=== PATIENT | male | born 1990 | race Caucasian/White ===

== ENCOUNTER 2022-11-28 05:19 | Emergency (ER) | payer SELFPAY ==
[2022-11-28 05:22] VITALS: BP 164/99; PULSE 118; RESP 18; TEMP 37.6; O2SAT 97; BMI 39.7
--- NOTE | 2022-11-28 05:48 | ED_ITS ---
HPI - General Adult General Chief complaint: Fever Time Seen by Provider: 11/28/22 05:44 History of Present Illness HPI narrative: presents complaining of sore throat and fever that started yesterday. Past history of tonsillectomy. has a dry cough. Not short of breath. Does have nausea but no abdominal pain. currently using eye drops for pink eye right eye and states the eye is better Related Data Allergies Allergy/AdvReac Type Severity Reaction Status Date / Time Penicillins Allergy Unknown Verified 11/28/22 05:25 Review of Systems ROS Status of ROS 10 or more systems reviewed and unremarkable except as noted in history and below Exam Constitutional Vital Signs - 24 hr 11/28/22 05:22 Temperature 99.6 F Pulse Rate [Monitor] 118 H Respiratory Rate 18 Blood Pressure [Right Arm] 164/99 H Pulse Oximetry 97 Common normals: no apparent distress, oriented x3, alert and well nourished HENMT Common normals: normocephalic and head/scalp atraumatic Eye Common normals: EOMs intact bilaterally Other: right conjunctiva pink. no chemosis Neck & C-Spine Common normals: full ROM Other: tender submandibular nodes Chest Common normals: inspection of chest normal, palpation of chest normal and inspection of breasts normal Respiratory Common normals: normal respiratory effort, no use of accessory muscles and clear to auscultation bilaterally Cardio Common normals: regular rate, regular rhythm, S1 normal heart sound and S2 normal heart sound GI Common normals: Normal to inspection, nondistended, normoactive bowel sounds present Extremity Common normals: normal to inspection, full ROM and no joint enlargement Neuro Common normals: oriented x3, CN's II-XII intact bilaterally, moves all extremities and no focal motor deficits Psych Appearance: grossly normal Course Vital Signs Vital signs: Vital Signs Temperature 99.6 F 11/28/22 05:22 Pulse Rate 118 H 11/28/22 05:22 Respiratory Rate 18 11/28/22 05:22 Blood Pressure 164/99 H 11/28/22 05:22 Pulse Oximetry 97 11/28/22 05:22 Temperature 99.6 F 11/28/22 05:22 Pulse Rate 118 H 11/28/22 05:22 Respiratory Rate 18 11/28/22 05:22 Blood Pressure 164/99 H 11/28/22 05:22 Pulse Oximetry 97 11/28/22 05:22 Medical Decision Making MDM Narrative Medical decision making narrative: patient presents with sore throat and low grade fever. Has dry cough and is not short of breath. Exam with mild erythema of his pharynx and bilat tender ant. cervical nodes. diagnostic and lab studies pending. Care transferred to Dr Mcclain at change of shift Lab Data Labs: Lab Results 11/28/22 Range/Units 06:00 Streptococcus Screen Negative Discharge Plan Discharge Chief Complaint: Fever Clinical Impression: Pharyngitis Referrals: [facility] [Primary Care Provider] - 1 week
--- NOTE | 2022-11-28 05:54 | XR_ITS ---
The [address] [address] Patient Name: GABRIELA STERN MRN: [id number] date: 1990 Sex: M Assigned Patient Location: ER Current Patient Location: ED.MAIN Accession/Order Number: [id number] Exam Date: 11/28/2022 06:05 Report Date: 11/28/2022 06:54 At the request of: GARY DANG Procedure: XR chest 2V EXAM: XR chest 2V 11/28/2022 6:05 AM EDT OH001 CLINICAL STATEMENT: cough COMPARISON: No prior studies are available at the time of dictation. TECHNIQUE: PA and lateral radiograph of the chest are submitted. FINDINGS: There is no acute airspace disease. The cardiac silhouette is normal. The costophrenic recesses are sharp. No pneumothorax. The bony elements are unremarkable. IMPRESSION: No acute cardiopulmonary process. Electronically authenticated by: JOSÉ MIGUEL CARDONA Date: 11/28/2022 06:54
[2022-11-28 06:05] LABS: Bordetella parapertussis NOT DETECTED (NOT DETECTE); Coronavirus 229E NOT DETECTED (NOT DETECTE); Coronavirus HKU1 NOT DETECTED (NOT DETECTE); Coronavirus NL63 NOT DETECTED (NOT DETECTE); Coronavirus OC43 NOT DETECTED (NOT DETECTE); Human Metapneumovirus NOT DETECTED (NOT DETECTE); Human Rhinovirus/Enterovirus NOT DETECTED (NOT DETECTE); Influenza A NOT DETECTED (NOT DETECTE); Influenza B NOT DETECTED (NOT DETECTE); Mycoplasma pneumoniae NOT DETECTED (NOT DETECTE); Parainfluenza Virus 1 NOT DETECTED (NOT DETECTE); Parainfluenza Virus 2 NOT DETECTED (NOT DETECTE); Parainfluenza Virus 3 NOT DETECTED (NOT DETECTE); Parainfluenza Virus 4 NOT DETECTED (NOT DETECTE); Respiratory Syncytial Virus NOT DETECTED (NOT DETECTE); SARS-CoV-2 NOT DETECTED (NOT DETECTE)
[2022-11-28] MEDS: ONDANSETRON 4 MG RAPDIS TABLET SL (06:05)
[2022-11-28 06:23] LABS: Internal Control Within Normal Limits; Strep A Antigen Screen Negative
[2022-11-28 07:04] LABS: Adenovirus DETECTED (NOT DETECTE)
--- NOTE | 2022-11-28 07:14 | ED_ITS ---
HPI - General Adult General Chief complaint: Fever Time Seen by Provider: 11/28/22 05:44 Related Data Allergies Allergy/AdvReac Type Severity Reaction Status Date / Time Penicillins Allergy Unknown Verified 11/28/22 05:25 Exam Constitutional Vital Signs - 24 hr 11/28/22 05:22 Temperature 99.6 F Pulse Rate [Monitor] 118 H Respiratory Rate 18 Blood Pressure [Right Arm] 164/99 H Pulse Oximetry 97 Course Vital Signs Vital signs: Vital Signs Temperature 99.6 F 11/28/22 05:22 Pulse Rate 118 H 11/28/22 05:22 Respiratory Rate 18 11/28/22 05:22 Blood Pressure 164/99 H 11/28/22 05:22 Pulse Oximetry 97 11/28/22 05:22 Temperature 99.6 F 11/28/22 05:22 Pulse Rate 118 H 11/28/22 05:22 Respiratory Rate 18 11/28/22 05:22 Blood Pressure 164/99 H 11/28/22 05:22 Pulse Oximetry 97 11/28/22 05:22 Medical Decision Making [facility] Narrative Medical decision making narrative: this patient was previously seen by Dr. Austin with laboratory testing ordered Strep screen is negative, the clinical exam was benign. The chest x-ray is negative and the respiratory panel is pending. I do not believe he needs any antibiotic intervention. His diagnosis will be acute pharyngitis Lab Data Labs: Lab Results 11/28/22 Range/Units 06:00 Adenovirus (PCR) Detected A (NOT DETECTE) C. pneumoniae DNA (PCR) Not detected (NOT DETECTE) Coronavirus Type OC43 Not detected (NOT DETECTE) Coronavirus Type HKU1 Not detected (NOT DETECTE) Coronavirus Type 229E Not detected (NOT DETECTE) Coronavirus Type NL63 Not detected (NOT DETECTE) Human Metapneumovir PCR Not detected (NOT DETECTE) M. pneumoniae (PCR) Not detected (NOT DETECTE) Parainfluenza PCR Not detected (NOT DETECTE) Parainfluenza 2 (PCR) Not detected (NOT DETECTE) Parainfluenza 3 (PCR) Not detected (NOT DETECTE) Parainfluenza 4 (PCR) Not detected (NOT DETECTE) RSV (RT-PCR) Not detected (NOT DETECTE) Entero/Rhino (PCR) Not detected (NOT DETECTE) SARS-CoV-2 (PCR) Not detected (NOT DETECTE) Streptococcus Screen Negative Bordetella pertussis (PCR) Not detected (NOT DETECTE) B parapertussis DNA PCR Not detected (NOT DETECTE) Influenza Type A (PCR) Not detected (NOT DETECTE) Influenza Type B (PCR) Not detected (NOT DETECTE) Discharge Plan Discharge Chief Complaint: Fever Clinical Impression: Pharyngitis Patient Disposition: Home, Self-Care Time of Disposition Decision: 07:03 Stand Alone Forms: Portal Instructions Referrals: [facility] [Primary Care Provider] - 1 week
--- NOTE | 2022-11-28 08:04 | PC.NURSE ---
RN spoke to pt via phone about RS plus results. RN informed pt that he tested positive for adenovirus. pt given verbal instructions on treatment of symptoms and when to return to ER and to follow up with pcp. pt verbalized understanding and denies needs.
== END 2022-11-28 07:16 | disposition home or self-care (01) ==
PROVIDERS: Internal Medicine; Emergency Provider Emergency Medicine Emergency Medical Services
DX: J02.9 Acute pharyngitis, unspecified (principal); R50.9 Fever, unspecified; Z20.822 Contact with and (suspected) exposure to COVID-19
CPT/HCPCS: 0202U; 71046; 87070; 87880; 99285

== ENCOUNTER 2022-11-29 18:20 | Emergency (ER) | payer SELFPAY ==
[2022-11-29 18:24] VITALS: BP 130/90; PULSE 92; RESP 20; TEMP 36.8; O2SAT 98; BMI 39.9
--- NOTE | 2022-11-29 18:32 | ED_ITS ---
HPI - General Adult General Chief complaint: Upper Respiratory Infection Stated complaint: BLOOD PRESSURE HIGH Time Seen by Provider: 11/29/22 18:23 Source: patient Mode of arrival: walk-in Limitations: no limitations History of Present Illness HPI narrative: patient is a 32-year-old male who presents to the emergency department for concern of Aleve overdose. He has been taking Aleve since yesterday and took three doses of 440 mg. He states this afternoon he was reading the label and was concerned that he may have overdosed himself and caused a heart attack because he was reading the side effects of the bottle. he was seen in this emergency department approximately thirty-six hours ago for cough and congestion and a respiratory panel was positive for adenovirus. He states fevers have resolved but he continues to have cough and congestion. He states he felt anxious and felt as though his blood pressure was high prior to arrival so he came to the emergency department to be evaluated to make sure that the Aleve did not give him a heart attack, he states his mother was going to call 911 if he did not come to the Emergency Room. He has no focal medical complaints at this time. He has not had any chest pain, hemoptysis. Related Data Allergies Allergy/AdvReac Type Severity Reaction Status Date / Time Penicillins Allergy Unknown Verified 11/28/22 05:25 Review of Systems ROS Constitutional Denies: fever or chills Ears, nose, mouth, and throat Denies: neck pain Cardiovascular Denies: chest pain Respiratory Reports: cough; Denies: shortness of breath Gastrointestinal Denies: nausea or vomiting Genitourinary Denies: painful urination Musculoskeletal Denies: back pain or neck pain Integumentary/Breast Denies: rash Exam Narrative Exam Narrative: Gen.: Awake, alert, in no distress Head: Normocephalic, atraumatic ENT: Moist mucous membranes Respiratory: No respiratory distress, lungs clear bilaterally Cardio: Regular rate and rhythm Extremities: Moves extremities equally Psych: Normal mood and affect Neuro: No focal neuro deficit Skin: Warm, dry, intact Constitutional Vital Signs - 24 hr 11/29/22 18:24 Temperature 98.2 F Pulse Rate [Monitor] 92 H Respiratory Rate 20 Blood Pressure [Right Arm] 130/90 H Pulse Oximetry 98 Oxygen Delivery Method Room Air Course Vital Signs Vital signs: Vital Signs Temperature 98.2 F 11/29/22 18:24 Pulse Rate 92 H 11/29/22 18:24 Respiratory Rate 20 11/29/22 18:24 Blood Pressure 130/90 H 11/29/22 18:24 Pulse Oximetry 98 11/29/22 18:24 Oxygen Delivery Method Room Air 11/29/22 18:24 Temperature 98.2 F 11/29/22 18:24 Pulse Rate 92 H 11/29/22 18:24 Respiratory Rate 20 11/29/22 18:24 Blood Pressure 130/90 H 11/29/22 18:24 Pulse Oximetry 98 11/29/22 18:24 Oxygen Delivery Method Room Air 11/29/22 18:24 Medical Decision Making MDM Narrative Medical decision making narrative: patient with no focal medical complaints at this time and stable vital signs. EKG shows normal sinus rhythm and he is discharged to follow-up with PCP. He is encouraged to follow label directions for [id number] medications. He was reassured that his chest x-ray yesterday was normal, he has a normal EKG and positive viral swab for adenovirus. He will continue to have cough and congestion for the next several days and can take Motrin and Tylenol [id number]-[id number]. Return to the Emergency Room if symptoms change or worsen. Medical Records Medical records reviewed: Yes I reviewed the patient's medical records Lab Data Lab results reviewed: Yes I reviewed the patient's lab results ECG Data Attestation: I personally reviewed and interpreted this ECG as follows: (normal sinus rhythm at a rate of ninety-six, no acute ST elevation or ectopy. EKG reviewed by attending physician) Discharge Plan Discharge Chief Complaint: Upper Respiratory Infection Clinical Impression: Upper respiratory infection Patient Disposition: Home, Self-Care Time of Disposition Decision: 18:38 Condition: Good Instructions: Upper Respiratory Infection (ED) Stand Alone Forms: Portal Instructions Referrals: [facility] [Primary Care Provider] - 1 week
--- NOTE | 2022-11-29 18:35 | ECG_ITS ---
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
[2022-11-29 18:36] VITALS: PULSE 96
== END 2022-11-29 18:52 | disposition home or self-care (01) ==
LOC: ER 18:45
PROVIDERS: Emergency Provider Emergency Medicine
DX: J06.9 Acute upper respiratory infection, unspecified (principal)
CPT/HCPCS: 93005; 99283

== ENCOUNTER 2023-03-21 05:54 | Emergency (ER) | payer BC, SELFPAY ==
[2023-03-21 06:06] VITALS: BP 145/90; PULSE 81; RESP 18; TEMP 36.9; O2SAT 97; BMI 40.2
--- NOTE | 2023-03-21 06:16 | ED.DENTAL1 ---
HPI - Dental/Oral General Chief complaint: Dental/Oral Stated complaint: dental pain Time Seen by Provider: 03/21/23 06:12 Source: patient Mode of arrival: walk-in Limitations: no limitations History of Present Illness HPI Narrative: patient presents complaining of dental pain. States he is scheduled for root canal later this month. Increasing pain over the past couple of days and not able to sleep. No fever or swelling. Onset (ago): day(s) Related Data Home Medications Medication Instructions Recorded Confirmed No Known Home Medications 03/21/23 03/21/23 Allergies Allergy/AdvReac Type Severity Reaction Status Date / Time Penicillins Allergy Unknown Verified 03/21/23 06:11 Review of Systems ROS Status of ROS 10 or more systems reviewed and unremarkable except as noted in history and below [facility] Social History Smoking status: Current every day smoker Exam Constitutional Vital Signs, click to edit/add: Last Vital Signs Temp 98.4 F 03/21/23 06:06 Pulse 81 03/21/23 06:06 Resp 18 03/21/23 06:06 BP 145/90 H 03/21/23 06:06 Pulse Ox 97 03/21/23 06:06 Common normals: no apparent distress (mild distress) [facility] Throat image: 1. tender dental caries Eye Common normals: EOMs intact bilaterally and conjunctivae normal Respiratory Common normals: normal respiratory effort, no retractions and no use of accessory muscles Cardio Common normals: regular rate, regular rhythm, S1 normal heart sound and S2 normal heart sound Extremity Common normals: normal to inspection and full ROM Neuro Common normals: oriented x3, CN's II-XII intact bilaterally, moves all extremities, no focal motor deficits and no sensory deficits noted Psych Appearance: grossly normal Course Vital Signs Vital signs: Vital Signs Temperature 98.4 F 03/21/23 06:06 Pulse Rate 81 03/21/23 06:06 Respiratory Rate 18 03/21/23 06:06 Blood Pressure 145/90 H 03/21/23 06:06 Pulse Oximetry 97 03/21/23 06:06 Temperature 98.4 F 03/21/23 06:06 Pulse Rate 81 03/21/23 06:06 Respiratory Rate 18 03/21/23 06:06 Blood Pressure 145/90 H 03/21/23 06:06 Pulse Oximetry 97 03/21/23 06:06 MDM - Dental/Oral MDM Narrative Medical decision making narrative: presents with known dental caries but now worsening pain. Treated in recent pass with antibiotic that did help the pain. pain is back and worse past couple of days and he is not able to sleep because of it. Does have obvious dental caries that is very tender. Will treat as dental abscess with clindamycin and tylenol with codeine Discharge Plan Discharge Chief Complaint: Dental/Oral Clinical Impression: Dental abscess Prescriptions / Home Meds: No Action No Known Home Medications Instructions: Dental Abscess (ED) Additional Instructions: follow up with your dentist Referrals: [facility] [Primary Care Provider] - 1 week
--- NOTE | 2023-03-21 06:17 | PC.NURSE ---
Pt presents to ER for left sided upper tooth pain Pt states he is scheduled for a root canal Sunday but 2 days ago the pain increased drastically Pt states he cannot sleep, cannot bear the pain Pt carrying a bottle of water, states if it get's dry the pain becomes excruciating Pt states he was on a z-juma per the dentist but this was almost 3 weeks ago, Sunday is the soonest they could get him into the dentist Pt states he has been rotating Tylenol and Motrin
[2023-03-21] MEDS: CLINDAMYCIN HCL 150 MG CAPSULE 300 MG PO (06:34)
== END 2023-03-21 06:50 | disposition home or self-care (01) ==
PROVIDERS: Emergency Provider Internal Medicine
DX: K04.7 Periapical abscess without sinus (principal); F17.210 Nicotine dependence, cigarettes, uncomplicated
CPT/HCPCS: 99283

== ENCOUNTER 2023-07-08 10:45 | Emergency (ER) | payer BC, SELFPAY ==
[2023-07-08] VITALS (22 sets, daily range): BP systolic 110–127; BP diastolic 75–78; PULSE 90–113; RESP 14–18; TEMP 37.1; O2SAT 89–98; BMI 39.9
--- NOTE | 2023-07-08 10:49 | XR_ITS ---
The [address] [address] Patient Name: GABRIELA STERN MRN: [id number] date: 1990 Sex: M Assigned Patient Location: ER Current Patient Location: ER Accession/Order Number: [id number] Exam Date: 07/08/2023 11:00 Report Date: 07/08/2023 11:38 At the request of: LEWIS MA Procedure: XR chest 1V PROCEDURE: XR chest 1V DATE: 07/08/2023 11:00 AM EST COMPARISONS: None. CLINICAL INDICATION: 33 years Male CP FINDINGS: The cardiomediastinal silhouette and pulmonary vasculature are within normal limits. The lungs are clear. There is no evidence of pleural effusion or pneumothorax. XR/XR chest 1V IMPRESSION: Chest radiograph is within normal limits. Electronically authenticated by: MONICA THAKUR Date: 07/08/2023 11:38
--- NOTE | 2023-07-08 10:49 | ECG_ITS ---
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
--- NOTE | 2023-07-08 10:50 | ED_ITS ---
HPI - Chest Pain General Chief Complaint: Chest Pain Stated Complaint: CHEST PAIN Time Seen by Provider: 07/08/23 10:46 History of Present Illness HPI narrative: 33-year-old male presents for chest pain which is now resolved. It started at approximately 930 this morning when he was sitting on the couch with his kids and after the paramedics gave him nitroglycerin and it went away. He drank alcohol heavily last night and did cocaine. No vomiting. No fever or complaints of shortness of breath. No back pain Related Data Home Medications Medication Instructions Recorded Confirmed albuterol sulfate 90 mcg/actuation 2 puff inhalation Q4H PRN 07/08/23 07/08/23 aerosol inhaler shortness of breath or wheezing Allergies Allergy/AdvReac Type Severity Reaction Status Date / Time Penicillins Allergy Unknown Verified 07/08/23 10:47 Review of Systems ROS Narrative A ten point review of systems is negative except as noted above. PFSH PFSH Social History Smoking status: Current every day smoker Exam Narrative Exam Narrative: Nurses note and vital signs reviewed and patient is not hypoxic. General: The patient appears well and in no apparent distress. Patient is resting comfortably on cart. Skin: Warm, dry, no pallor noted. There is no rash noted. Head: Normocephalic, atraumatic Eye: Normal conjunctiva, no drainage Ears, Nose, Mouth, and Throat: oral mucosa is moist. Nares patent. Cardiovascular: Regular Rate and Rhythm Respiratory: Patient is in no distress, no accessory muscle use, lungs are clear to auscultation, no wheezing, rales or rhonchi Back: non-tender GI: Soft and nontender Musculoskeletal: The patient has no evidence of calf tenderness, no pitting edema, symmetrical pulses noted bilaterally Neurological: A&O, normal speech Psychiatric: Cooperative Constitutional Vital Signs, click to edit/add: Last Vital Signs Temp 98.7 F 07/08/23 10:47 Pulse 93 H 07/08/23 13:20 Resp 18 07/08/23 10:47 BP 110/75 07/08/23 12:34 Pulse Ox 96 07/08/23 13:20 O2 Del Method Room Air 07/08/23 10:47 Course Vital Signs Vital signs: Vital Signs Temperature 98.7 F 07/08/23 10:47 Pulse Rate 108 H 07/08/23 10:47 Respiratory Rate 18 07/08/23 10:47 Blood Pressure 127/78 07/08/23 10:47 Pulse Oximetry 90 L 07/08/23 10:47 Oxygen Delivery Method Room Air 07/08/23 10:47 Temperature 98.7 F 07/08/23 10:47 Pulse Rate 93 H 07/08/23 13:20 Respiratory Rate 18 07/08/23 10:47 Blood Pressure 110/75 07/08/23 12:34 Pulse Oximetry 96 07/08/23 13:20 Oxygen Delivery Method Room Air 07/08/23 10:47 MDM - Chest Pain MDM Narrative Medical decision making narrative: The patient's workup including 2 sets of troponin is negative. He remains asymptomatic and is discharged home. Treatment diagnosis and follow-up were discussed with the patient. Differential Diagnosis Differential diagnosis: Likely fracture of rib, pneumothorax, unstable angina pectoris, atypical chest pain, st elevation myocardial infarction, costochondritis and chest pain Lab Data Attestation: I reviewed the patient's lab results. Labs: Lab Results 07/08/23 07/08/23 Range/Units 11:08 13:10 WBC 11.8 H (4.0-11.0) 10^3/uL RBC 5.42 (4.70-6.10) 10^6/uL Hgb 16.0 (14.0-18.0) g/dL Hct 48.0 (42.0-54.0) % MCV 88.6 (80.0-94.0) fL MCH 29.5 (25.9-34.0) pg MCHC 33.3 (29.9-35.2) g/dL RDW 13.4 (11.0-15.0) % Plt Count 242 (150-450) 10^3/uL MPV 10.3 (9.5-13.5) fL Neut % (Auto) 64.6 (43.0-75.0) % Lymph % (Auto) 28.1 (20.5-60.0) % [place] % (Auto) 5.3 (1.7-12.0) % Eos % (Auto) 0.9 (0.9-7.0) % Baso % (Auto) 0.3 (0.2-2.0) % Neut # (Auto) 7.6 H (1.4-6.5) 10^3/uL Lymph # (Auto) 3.3 (1.2-3.8) 10^3/uL [place] # (Auto) 0.6 (0.3-0.8) 10^3/uL Eos # (Auto) 0.1 (0.0-0.7) 10^3/uL Baso # (Auto) 0.0 (0.0-0.1) 10^3/uL Abs Immat Gran (auto) 0.10 H (0.00-0.03) 10^3/uL Imm/Tot Granulo (auto) 0.8 H (0.0-0.5) % Sodium 143 (136-145) mmol/L Potassium 4.2 (3.5-5.1) mmol/L Chloride 103 (98-107) mmol/L Carbon Dioxide 26.0 (21.0-32.0) mmol/L Anion Gap 18.2 BUN 8.0 (7.0-18.0) mg/dL Creatinine 0.98 (0.70-1.30) mg/dL Est GFR ( Amer) >60 (>=60) Est GFR (Non-Af Amer) >60 (>=60) BUN/Creatinine Ratio 8.2 Glucose 132 H (74-106) mg/dL Calcium 9.2 (8.5-10.1) mg/dL Troponin I High Sens 9.1 6.8 (4.0-76.1) pg/mL Imaging Data CT scan - chest: Radiologist's impression: ITS Impressions Chest X-Ray 07/08/23 10:49 IMPRESSION: Chest radiograph is within normal limits. Electronically authenticated by: MONICA THAKUR Date: 07/08/2023 11:38 Chest CTA 07/08/23 11:38 IMPRESSION:No evidence of pulmonary embolus or acute intrathoracic abnormality. Electronically authenticated by: INOCENCIO PEREZ Date: 07/08/2023 12:59 ECG Data Attestation: I personally reviewed and interpreted this ECG as follows: (EKG on my interpretation shows normal sinus rhythm with a rate of 104 and no acute changes.) Heart Score History: Slightly/Non-Suspicious ECG: Normal Age: <45 years Risk Factors: 1 or 2 Risk Factors Troponin: <Normal Limit Total Heart Score Recommendations & Risks:: 1 Discharge Plan Discharge Chief Complaint: Chest Pain Clinical Impression: Chest pain Patient Disposition: Home, Self-Care Time of Disposition Decision: 13:58 Condition: Good Mode of Transportation: Private Vehicle Prescriptions / Home Meds: No Action albuterol sulfate 90 mcg/actuation HFA aerosol inhaler 2 puff INHALATION Q4H PRN (Reason: shortness of breath or wheezing) Instructions: Chest Pain (ED) Stand Alone Forms: Portal Instructions Referrals: [facility] [Primary Care Provider] - 1 week
[2023-07-08 11:14] LABS: Basophils Percent Auto 0.3 % (0.2-2.0); Eosinophils Absolute Auto 0.1 10^3/uL (0.0-0.7); Eosinophils Percent Auto 0.9 % (0.9-7.0); Immature Granulocytes Pct Auto 0.8 % (0.0-0.5); Lymphocytes Absolute Auto 3.3 10^3/uL (1.2-3.8); Lymphocytes Percent Auto 28.1 % (20.5-60.0); Mean Corpuscular HGB Conc 33.3 g/dL (29.9-35.2); Mean Corpuscular Hemoglobin 29.5 pg (25.9-34.0); Mean Corpuscular Volume 88.6 fL (80.0-94.0); Mean Platelet Volume 10.3 fL (9.5-13.5); Monocytes Absolute Auto 0.6 10^3/uL (0.3-0.8); Monocytes Percent Auto 5.3 % (1.7-12.0); Neutrophils Absolute Auto 7.6 10^3/uL (1.4-6.5); Neutrophils Percent Auto 64.6 % (43.0-75.0); Platelet Count 242 10^3/uL (150-450); Red Blood Count 5.42 10^6/uL (4.70-6.10); Red Cell Distribution Width 13.4 % (11.0-15.0); White Blood Count 11.8 10^3/uL (4.0-11.0)
[2023-07-08 11:29] LABS: Anion Gap 18.2; BUN Creatinine Ratio 8.2; Calcium 9.2 mg/dL (8.5-10.1); Chloride 103 mmol/L (98-107); Estimated GFR (African America >60 (>=60); Estimated GFR (Non-African Ame >60 (>=60); Glucose 132 mg/dL (74-106); Potassium 4.2 mmol/L (3.5-5.1); Sodium 143 mmol/L (136-145)
[2023-07-08 11:35] LABS: Troponin I High Sensitivity 9.1 pg/mL (4.0-76.1)
--- NOTE | 2023-07-08 11:38 | CT_ITS ---
[address] [address] Patient Name: GABRIELA STERN MRN: [id number] date: 1990 Sex: M Assigned Patient Location: ER Current Patient Location: ED.MAIN Accession/Order Number: [id number] Exam Date: 07/08/2023 12:05 Report Date: 07/08/2023 12:59 At the request of: LEWIS MA Procedure: CT angio chest EXAM: CT angio chest HISTORY: CP COMPARISON: None. TECHNIQUE: CT chest with intravenous contrast was performed with timing for the evaluation for pulmonary arteries. Multiplanar reformats were performed. MIP (maximum intensity projection) images or 3D post processing was performed. Dose reduction techniques were achieved by using automated exposure control and/or adjustment of mA and/or kV according to patient size and/or use of iterative reconstruction technique. FINDINGS: Lungs: No consolidation, mass, or effusion. Airways: Normal. Mediastinum: No adenopathy. Aorta: No aneurysm. Cardiac: Normal size. No pericardial effusion. Pulmonary vasculature: Diagnostic opacification of pulmonary arteries without evidence of pulmonary embolus. Normal morphology. Bones: No acute bony abnormality. Axilla: No adenopathy. Thyroid gland: No abnormality demonstrated on provided imaging. Soft tissues: Unremarkable. Upper abdomen: Unremarkable. Additional findings: None. CT/CT angio chest IMPRESSION:No evidence of pulmonary embolus or acute intrathoracic abnormality. Electronically authenticated by: INOCENCIO PEREZ Date: 07/08/2023 12:59
[2023-07-08 13:30] LABS: Troponin I High Sensitivity 6.8 pg/mL (4.0-76.1)
== END 2023-07-08 14:06 | disposition home or self-care (01) ==
PROVIDERS: Emergency Provider Emergency Medicine
DX: R07.9 Chest pain, unspecified (principal); F17.210 Nicotine dependence, cigarettes, uncomplicated
CPT/HCPCS: 36415; 71045; 71275; 80048; 84484; 85025; 93005; 99285; Q9967

== ENCOUNTER 2024-06-05 20:56 | Emergency (ER) | payer OTHER, SELFPAY ==
--- OUTSIDE RECORDS SUMMARY | 2024-06-05 21:05 | XMS_ITS | CCD ---
Author Organization [facility] ion [facility] Care Team Providers Care Otologist Name Role Phone NATO NARANJO [facility] Primary Care Unavailable JEMIMA, DR ESTEVES Admitting Unavailable HAY, DR ESTEVES Attending Unavailable HAY, DR ESTEVES Consulting [facility] Care Unavailable JEMIMA, DR ESTEVES Admitting Unavailable HAY, DR ESTEVES Attending Unavailable HAY, DR ESTEVES Consulting [facility] SERVICES, [facility] Unava ilable ALYSSIA HIGHTOWER Attending Unavailable ALYSSIA HIGHTOWER Attending Unavailable ALYSSIA HIGHTOWER [facility]erring [facility] Allergies Allergy Classification Reported Allergen(s) Allergy Type Date of Onset Reaction(s) Facility (2 sources) Penicillins; Translations: [PENICILLINS] Drug allergy (disorder) 04-03-2015 [facility] Repository Problems Problem Classification Problem Date Documented Da te Episodic/Chronic Asthma (1 source) Unspecified asthma with (acute) exacerbation; Translations: [Unspecified asthma with (acute) exacerbation] Onset: 07-22-2017 Chronic Fever of unknown origin (4 sources) Fever, unspecified; Translations: [FEVER UNSPECIFIED] Onset: 11-26-2021 Episodic Nonspecific chest pain (2 sources) Chest pain, unspecified; Translations: [Chest pain] Onset: 06-20-2023 Episodic Other upper respiratory infections (4 sources) Acute pharyngitis, unspecified; Translations: [ACUTE PHARYNGITIS UNSPECIFIED] Onset: 11-18-2021 Episodic Substance-related disorders (1 source) Nicotine dependence, cigarettes, uncomplicated; Translations: [NICOTINE DEPEND CIGARETTES UNCOMP] Onset: 11-28-2021 Chronic Unclassified (1 source) EMS Onset: 06-20-2023 Viral infection (1 source) Viral infection, unspecified; Translations: [Viral infection, unspecified] Onset: 06-20-2023 Episodic Viral infection (1 source) COVID-19; Translations: [COVID-19] Onset: 11-28-2021 Results Test Name Value Interpretation Reference Range Facility CBC AND AUTO DIFFon 06-20-19 24 ABSOLUTE BASOPHIL 0.0 X10E9/L Normal 0.0-0.2 [facility] Comment on above: Performed By: #### Sharla RECIO CMP, 18724-1 #### [facility] ([id number]) [address] [place] [address] 74950 ABSOLUTE NEUTROPHIL 11.2 X10E9/L High 1.5-6.6 [facility] Comment on above: Performed By: #### Sharla RECIO CMP, 88464-8 #### [facility] ([id number]) [address] [place] [address] 53267 Basophils/100 WBC (Bld) 0.3 % Normal [facility] Comment on above: Performed By: #### Sharla RECIO CMP, 44546-4 #### [facility] ([id number]) [address] [place] [address] 59555 Eosinophils (Bld) [#/Vol] 0.1 10*3/uL Normal 0.0-0.4 [facility] Comment on above: Performed By: #### Sharla RECIO CMP, 09574-8 #### [facility] ([id number]) [address] [place] [address] 10586 Eosinophils/100 WBC (Bld) 0.7 % Normal [facility] Comment on above: Performed By: #### Sharla RECIO CMP, 20587-0 #### [facility] ([id number]) [address] [place] [address] 40692 Erythrocyte distribution width (RBC) [Ratio] 14.4 % Normal 11.5-15.0 [facility] Comment on above: Performed By: #### C ALMITA CMP, 05437-8 #### [facility] ([id number]) [address] [place] [address] 00603 Hematocrit (Bld) [Volume fraction] 47.0 % Normal 39-49 [facility] Comment on above: Performed By: #### Sharla RECIO CMP, 52103-6 #### [facility] ([id number]) [address] [place] [address] 74177 Hemoglobin (Bld) [Mass/Vol] 15.8 g/dL Normal 13.0-17.0 [facility] Comment on above: Performed By: #### Sharla RECIO CMP, 55793-4 #### [facility] ([id number]) [address] [place] [address] 77864 Lymphocytes (Bld) [#/Vol] 2.4 10*3/uL Normal 1.0-3.5 [facility] Comment on above: Performed By: #### Sharla RECIO CMP, 29671-6 #### [facility] ([id number]) [address] [place] [address] 48139 Lymphocytes/100 WBC (Bld) 16.1 % Normal [facility] Comment on above: Performed By: #### Sharla RECIO CMP, 14669-8 #### [facility] ([id number]) [address] [place] [address] 58138 MCH (RBC) [Entitic mass] 29.8 pg Normal 27-34 [facility] Comment on above: Performed By: #### Sharla RECIO CMP, 47366-9 #### [facility] ([id number]) [address] [place] [address] 80100 MCHC (RBC) [Mass/Vol] 33.7 g/dL Normal 32-36 [facility] Comment on above: Performed By: #### Sharla RECIO CMP, 36443-2 #### [facility] ([id number]) [address] [place] [address] 93098 MCV (RBC) [Entitic vol] 88 fL Normal 80-100 [facility] Comment on above: Performed By: #### Sharla RECIO CMP, 26669-4 #### [facility] ([id number]) [address] [place] [address] 87233 Monocytes (Bld) [#/Vol] 0.9 10*3/uL Normal 0-0.9 [facility] Comment on above: Performed By: #### Sharla RECIO CMP, 96749-0 #### [facility] ([id number]) [address] [place] [address] 36346 Monocytes/100 WBC (Bld) 6.0 % Normal [facility] Comment on above: Performed By: #### Sharla RECIO CMP, 11597-9 #### [facility] ([id number]) [address] [place] [address] 86504 Neutrophils/100 WBC (Bld) 76.9 % Normal [facility] Comment on above: Performed By: #### Sharla RECIO, CMP, 47813-5 #### [facility] ([id number]) [address] [place] [address] 77306 Platelet mean volume (Bld) [Entitic vol] 9.5 fL Normal 7-12 [facility] Comment on above: Performed By: #### Sharla RECIO, CMP, 00895-7 #### [facility] ([id number]) [address] [place] [address] 73223 Platelets (Bld) [#/Vol] 186 10*3/uL Normal 150-450 [facility] Comment on above: Performed By: #### Sharla RECIO, CMP, 02375-4 #### [facility] ([id number]) [address] [place] [address] 87509 RBC COUNT 5.31 X10E12/L Normal 4.10-5.70 [facility] Comment on above: Performed By: #### C BCA, CMP, 59723-9 #### [facility] ([id number]) [address] [place] [address] 05163 WBC (Bld) [#/Vol] 14.6 10*3/uL High 4.0-11.0 [facility] Comment on above: Performed By: #### C BCA, CMP, 14689-4 #### [facility] ([id number]) [address] [place] [address] 84291 COMPREHENSIVE METABOLIC PANE Cosmo 06-20-2023 Albumin [Mass/Vol] 4.3 g/dL Normal 3.2-5.3 [facility] Comment on above: Performed By: #### C BCA, CMP, 56347-2 #### [facility] ([id number]) [address] [place] [address] 17804 ALP [Catalytic activity/Vol] 81 U/L Normal 39-130 [facility] Comment on above: Performed By: #### C BCA, CMP, 77694-5 #### [facility] ([id number]) [address] [place] [address] 34106 ALT [Catalytic activity/Vol] 39 U/L Normal 0-40 [facility] Comment on above: Performed By: #### C BCA, CMP, 94730-8 #### [facility] ([id number]) [address] [place] [address] 65616 Anion gap [Moles/Vol] 9 mmol/L Normal 5-15 [facility] Comment on above: Performed By: #### C BCA, CMP, 83891-1 #### [facility] ([id number]) [address] [place] [address] 39255 AST [Catalytic activity/Vol] 21 U/L Normal 0-41 [facility] Comment on above: Performed By: #### C MATTIE RECIO, 77720-9 #### [facility] ([id number]) [address] [place] [address] 22218 Bilirubin [Mass/Vol] 1.1 mg/dL Normal 0.3-1.2 [facility] Comment on above: Performed By: #### Sharla RECIO CMP, 31364-3 #### [facility] ([id number]) [address] [place] [address] 43274 Calcium [Mass/Vol] 8.9 mg/dL Normal 8.5-10.5 [facility] Comment on above: Performed By: #### Sharla RECIO CMP, 36499-5 #### [facility] ([id number]) [address] [place] [address] 80776 Chloride [Moles/Vol] 102 mmol/L Normal 98-109 [facility] Comment on above: Performed By: #### Sharla RECIO CMP, 72144-1 #### [facility] ([id number]) [address] [place] [address] 09788 CO2 [Moles/Vol] 23 mmol/L Normal 22-32 [facility] Comment on above: Performed By: #### Sharla RECIO CMP, 82752-4 #### [facility] ([id number]) [address] [place] [address] 89491 Creatinine [Mass/Vol] 1.01 mg/dL Normal 0.70-1.20 [facility] Comment on above: Result Comment: METH OD TRACEABLE TO IDMS STANDARD Performed By: #### Sharla RECIO CMP, 34533-9 #### [facility] ([id number]) [address] [place] [address] 29724 eGFR (CKD-EPI) NON-RACE DEPENDENT >90 Normal >59 [facility] Comment on above: Result Comment: Reported eGFR is based on the CKD-EPI 2021 equation that does not use a race coefficient. Performed By: #### C BCA, CMP, 25348-9 #### [facility] ([id number]) [address] [place] [address] 25853 Glucose [Mass/Vol] 130 mg/dL High 65-99 [facility] Comment on above: Performed By: #### C BCA, CMP, 42256-2 #### [facility] ([id number]) [address] [place] [address] 34405 Potassium [Moles/Vol] 3.9 mmol/L Normal 3.5-5.0 [facility] Comment on above: Performed By: #### C BCA, CMP, 07772-1 #### [facility] ([id number]) [address] [place] [address] 55804 Protein [Mass/Vol] 7.5 g/dL Normal 6.0-8.0 [facility] Comment on above: Performed By: #### C BCA, CMP, 22588-5 #### [facility] ([id number]) [address] [place] [address] 66770 Sodium [Moles/Vol] 134 mmol/L Normal 134-146 [facility] Comment on above: Performed By: #### C BCA, CMP, 71366-8 #### [facility] ([id number]) [address] [place] [address] 73016 Urea nitrogen [Mass/Vol] 12 mg/dL Normal 5-23 [facility] Comment on above: Performed By: #### C BCA, CMP, 11420-2 #### [facility] ([id number]) [address] [place] [address] 15341 SARS/FLU A+B/RSV by NAAT/Mol ecularon 06-20-2023 SARS/FLU A+B/RSV by NAAT/Molecular FLU A PCR Negative (qualifier value) FLU B PCR Negative (qualifier value) RSV by PCR Negative (qualifier value) SARS CoV 2 Not detected (qualifier value) NOTE The Xpert Xpress SARS-CoV-2/Flu/RSV Plus test is a rapid, multiplexed real-time RT-PCR test intended for the simultaneous qualitative detection and differentiation of SARS-CoV-2, influenza A, influenza B and respiratory syncytial virus (RSV) viral RNA from individuals suspected of respiratory viral infection consistent with COVID-19 by their healthcare provider. This test has not been validated in asymptomatic patients. The Xpert Xpress SARS-CoV-2 test is intended for use by qualified and trained operators who are performing tests using either [employer] or [employer] systems and is limited to laboratories that meet the CLIA requirements to perform high and moderate complexity tests. The Xpert Xpress SARS-CoV-2/Flu/RSV Plus is only for use under the Food and Drug Administration's Emergency Use Authorization. Results are for the simultaneous detection and differentiation of SARS-CoV-2, influenza A, influenza B and RSV nucleic acids in clinical specimens. SARS-CoV-2, influenza A, influenza B and RSV RNA identified by this test are generally detectable in upper respiratory samples during the acute phase of infection. Positive results are indicative of the presence of the identified virus, but do not rule out bacterial infection or co-infection with other pathogens not detected by this test. Clinical correlation with patient history and other diagnostic information is necessary to determine patient infection status. The agent detected may not be the definite cause of disease. Negative results do not preclude SARS-CoV-2, influenza A, influenza B and RSV infection and should not be used as the sole basis for treatment or other patient management decisions. Negative results must be combined with clinical observations, patient history and epidemiological information. An Invalid result may occur with specimen-associated inhibition unable to be resolved with specimen repeat. Fact Sheet for Healthcare Providers: https://www.fda.gov/me liam/871387/download Fact Sheet for Patients: https://www.fda.gov/me liam/837391/download Normal [facility] Comment on above: Performed By: #### C OVFLR #### [facility] ([id number]) [address] [place] [address], [place] [address] TROPONIN Ion 06-20-2023 Troponin I.cardiac [Mass/Vol] ng/mL Normal 0.00-0.04 [facility] Comment on above: Performed By: #### C BCA, [facility], 88515-3 #### [facility] ([id number]) [address] [place] [address], [place] [address] XR CHEST 1 VWon 06-20-2023 XR CHEST 1 VW XR CHEST 1 VW XR CHEST 1 VW HISTORY: Chest pain, chest heaviness, fever COMPARISON: Chest x-ray 05/01/2022 FINDINGS: The cardiomediastinal silhouette is unremarkable appearing. Pulmonary vasculature is within normal limits. There is no focal consolidation. No pleural effusion or pneumothorax. Trachea is midline. Stable mild elevated right hemidiaphragm. IMPRESSION: * No acute cardiopulmonary process. Approved by Resident Rommel Baer DO on 06/20/2023 6:19 AM Dimitri Ennis MD have personally reviewed the image(s) and agree with and/or edited the report Finalized by Dimitri Higgins MD on 06/20/2023 6:26 AM Normal [facility] CBC AUTO DIFFon 11-26-2021 BASO # 0.0 103/ul Normal 0.0-0.1 [facility] Comment on above: Performed By: #### C BC #### [facility] [address] [place] [address] Dr. Taylor Whalen Basophils/100 WBC (Bld) 0.3 % Normal 0.2-2.0 [facility] Comment on above: Performed By: #### C BC #### [facility] [address] [place] [address] Dr. Taylor Whalen EO # 0.2 103/ul Normal 0.0-0.7 [facility] Comment on above: Performed By: #### C BC #### [facility] [address] [place] [address] Dr. Taylor Whalen Eosinophils/100 WBC (Bld) 1.8 % Normal 0.9-7.0 [facility] Comment on above: Performed By: #### C BC #### [facility] [address] [place] [address] Dr. Taylor Whalen Erythrocyte distribution width (RBC) [Ratio] 13.2 % Normal 11.0-15.0 [facility] Comment on above: Performed By: #### C BC #### [facility] [address] [place] [address] Dr. Taylor Whalen Hematocrit (Bld) [Volume fraction] 47.0 % Normal 42.0-54.0 [facility] Comment on above: Performed By: #### C BC #### [facility] [address] [place] [address] Dr. Taylor Whalen Hemoglobin (Bld) [Mass/Vol] 15.6 g/dL Normal 14.0-18.0 [facility] Comment on above: Performed By: #### C BC #### [facility] [address] [place] [address] Dr. Taylor Whalen IG # 0.10 10e3/ul Critically high 0.00-0.03 [facility] Comment on above: Performed By: #### C BC #### [facility] [address] [place] [address] Dr. Taylor Whalen IG % 0.9 % Critically high 0.0-0.5 [facility] Comment on above: Performed By: #### C BC #### [facility] [address] [place] [address] Dr. Taylor Whalen LYMPH # 1.1 103/ul Critically low 1.2-3.8 [facility] Comment on above: Performed By: #### C BC #### [facility] [address] [place] [address] Dr. Taylor Whalen Lymphocytes/100 WBC (Bld) 10.0 % Critically low 20.5-60.0 [facility] Comment on above: Performed By: #### C BC #### [facility] [address] [place] [address] Dr. Taylor Whalen MANUAL DIFF REQ NO Normal [facility] Comment on above: Performed By: #### C BC #### [facility] [address] [place] [address] Dr. Taylor Whalen MCH (RBC) [Entitic mass] 30.1 pg Normal 25.9-34.0 [facility] Comment on above: Performed By: #### C BC #### [facility] [address] [place] [address] Dr. Taylor Whalen MCHC (RBC) [Mass/Vol] 33.2 g/dL Normal 29.9-35.2 [facility] Comment on above: Performed By: #### C BC #### [facility] [address] [place] [address] Dr. Taylor Whalen MCV (RBC) [Entitic vol] 90.7 fL Normal 80.0-94.0 [facility] Comment on above: Performed By: #### C BC #### [facility] [address] [place] [address] Dr. Taylor Whalen MONO # 0.8 103/ul Normal 0.3-0.8 [facility] Comment on above: Performed By: #### C BC #### [facility] [address] [place] [address] Dr. Taylor Whalen Monocytes/100 WBC (Bld) 7.5 % Normal 1.7-12.0 [facility] Comment on above: Performed By: #### C BC #### [facility] [address] [place] [address] Dr. Taylor Whalen NEUT # 8.9 103/ul Critically high 1.4-6.5 [facility] Comment on above: Performed By: #### C BC #### [facility] [address] [place] [address] Dr. Taylor Whalen Neutrophils/100 WBC (Bld) 79.5 % Critically high 43.0-75.0 [facility] Comment on above: Performed By: #### C BC #### [facility] [address] [place] [address] Dr. Taylor Whalen Platelet mean volume (Bld) [Entitic vol] 10.9 fL Normal 9.5-13.5 [facility] Comment on above: Performed By: #### C BC #### [facility] [address] [place] [address] Dr. Taylor Whalen PLT 192 103/ul Normal 150-450 [facility] Comment on above: Performed By: #### C BC #### [facility] [address] [address] [address] Taylor Whalen RBC 5.18 106/ul Normal 4.70-6.10 [facility] Comment on above: Performed By: #### C BC #### [facility] [address] [address] [address] Taylor Whalen WBC 11.2 103/ul Critically high 4.0-11.0 [facility] Comment on above: Performed By: #### C BC #### [facility] [address] [address] [address] Taylor Whalen CRPon 11-26-2021 CRP 2.0 mg/dL Critically high <=1.0 [facility] Comment on above: Performed By: #### C RP, CMP #### [facility] [address] [address] [address] Taylor Whalen Covid-19 PCR (CVDTBH)on 11-03 SARS-CoV-2 (COVID-19) RNA KARUNA+probe Ql (Unsp spec) Detected Critically abnormal NOT DETECTED [facility] Comment on above: Result Comment: This test is not yet approved or cleared by the [place] FDA. When there are no FDA-approved or cleared tests available, and other criteria are met, FDA can make tests available under an emergency access mechanism called an Emergency Use Authorization (EUA). The EUA for this test is supported by the [place] of Health and Human Service's declaration that circumstances exist to justify the emergency use of in vitro diagnostics for the detection and/or diagnosis of the virus that causes COVID-19. This EUA will remain in effect for the duration of the COVID-19 declaration justifying emergency of IVDs, unless it is terminated or revoked by the FDA (after which the test may no longer be used). Performed By: #### C VDTBH #### [facility] [address] [place] [address] Dr. Taylor Whalen LACTATE/LACTIC ACIDon 2021 Lactate [Moles/Vol] 1.7 mmol/L Normal 0.4-1.9 [facility] Comment on above: Performed By: #### L ACT #### [facility] [address] [place] [address] Dr. Taylor Whalen PROF 14(COMP METB)on 022 Albumin [Mass/Vol] 3.9 g/dL Normal 3.4-5.0 [facility] Comment on above: Performed By: #### C RP, CMP #### [facility] [address] [place] [address] Dr. Taylor Whalen Albumin/Globulin [Mass ratio] 1.2 {ratio} Normal [facility] Comment on above: Performed By: #### C RP, CMP #### [facility] [address] [place] [address] Dr. Taylor Whalen ALP [Catalytic activity/Vol] 92 U/L Normal 46-116 [facility] Comment on above: Performed By: #### C RP, CMP #### [facility] [address] [place] [address] Dr. Taylor Whalen ALT [Catalytic activity/Vol] 41 U/L Normal 16-63 [facility] Comment on above: Performed By: #### C RP, CMP #### [facility] [address] [place] [address] Dr. Taylor Whalen Anion gap [Moles/Vol] 14.3 mmol/L Normal [facility] Comment on above: Performed By: #### C RP, CMP #### [facility] [address] [place] [address] Dr. Taylor Whalen AST [Catalytic activity/Vol] 14 U/L Critically low 15-37 [facility] Comment on above: Performed By: #### C RP, CMP #### [facility] [address] [place] [address] Dr. Taylor Whalen Bilirubin [Mass/Vol] 0.4 mg/dL Normal 0.2-1.0 [facility] Comment on above: Performed By: #### C RP, CMP #### [facility] [address] [place] [address] Dr. Taylor Whalen Calcium [Mass/Vol] 9.0 mg/dL Normal 8.5-10.1 [facility] Comment on above: Performed By: #### C RP, CMP #### [facility] [address] [place] [address] Dr. Taylor Whalen Chloride [Moles/Vol] 102 mmol/L Normal 98-107 [facility] Comment on above: Performed By: #### C RP, CMP #### [facility] [address] [place] [address] Dr. Taylor Whalen CO2 [Moles/Vol] 24.4 mmol/L Normal 21.0-32.0 [facility] Comment on above: Performed By: #### C RP, CMP #### [facility] [address] [place] [address] Dr. Taylor Whalen Creatinine [Mass/Vol] 1.23 mg/dL Normal 0.70-1.30 [facility] Comment on above: Performed By: #### C RP, CMP #### [facility] [address] [place] [address] Dr. Taylor Whalen EGFR-AF [place] >60 Normal >=60 [facility] Comment on above: Performed By: #### C RP, CMP #### [facility] [address] [place] [address] Dr. Taylor Whalen EGFR-NON AF [place] >60 Normal >=60 [facility] Comment on above: Performed By: #### C RP, CMP #### [facility] [address] [place] [address] Dr. Taylor Whalen Globulin (S) [Mass/Vol] 3.3 g/dL Normal [facility] Comment on above: Performed By: #### C RP, CMP #### [facility] [address] [place] [address] Dr. Taylor Whalen Glucose [Mass/Vol] 111 mg/dL Critically high 74-106 [facility] Comment on above: Performed By: #### C RP, CMP #### [facility] [address] [place] [address] Dr. Taylor Whalen Potassium [Moles/Vol] 3.7 mmol/L Normal 3.5-5.1 [facility] Comment on above: Performed By: #### C RP, CMP #### [facility] [address] [place] [address] Dr. Taylor Whalen Protein [Mass/Vol] 7.2 g/dL Normal 6.4-8.2 [facility] Comment on above: Performed By: #### C RP, CMP #### [facility] [address] [place] [address] Dr. Taylor Whalen Sodium [Moles/Vol] 137 mmol/L Normal 136-145 [facility] Comment on above: Performed By: #### C RP, CMP #### [facility] [address] [place] [address] Dr. Taylor Whalen Urea nitrogen [Mass/Vol] 10.0 mg/dL Normal 7.0-18.0 [facility] Comment on above: Performed By: #### C RP, CMP #### [facility] [address] [place] [address] Dr. Taylor Whalen Urea nitrogen/Creatinin e [Mass ratio] 8.1 mg/mg Normal [facility] Comment on above: Performed By: #### C RP, CMP #### [facility] [address] [place] [address] Dr. Taylor Whalen SED RATE [facility] 2021 SED RATE 17 mm/hr Critically high <=15 [facility] Comment on above: Performed By: #### S EDR #### [facility] [address] [place] [address] Dr. Taylor Whalen GROUP A STREP CULTUREon 11-02 S. pyogenes Ag Ql (Unsp spec) Culture Observations: NEGATIVE FOR GROUP A STREPTOCOCCUS. Normal [facility] Comment on above: Performed By: #### S SCRN GRASTCX #### [facility] [address] [place] [address] Dr. Taylor Whalen STREPT SCREENon 11-18-2021 STREP SCREEN A Negative Normal NEGATIVE [facility] Comment on above: Performed By: #### S SCRN, GRASTCX #### [facility] [address] [address] [address] Taylor Whalen XR CHEST PORTABLEon 07-22-19 18 XR CHEST PORTABLE EXAMINATION:SINGLE VIEW OF THE CHEST07/21/2017COMPARIS ON:NoneHISTORY:ORDERIN G SYSTEM PROVIDED HISTORY: Chest PainTECHNOLOGIST PROVIDED HISTORY:Reason for exam:->Chest PainOrdering Physician Provided Reason for Exam: SOBRelevant Medical/Surgical History: asthmaInitial evaluation.FINDINGS:Cl ear lungs. No findings of pneumothorax or pleural effusion. Normalmediastinal, hilar, and cardiac contours. No obvious acute fracture. Jointsmaintain anatomic alignment.IMPRESSION: No acute findings in the chest.Interpreted by:GABRIELLE Arzateigned by:Vin Bautista MD07/21/17inal result Normal [facility] Encounters Encounter Date Encounter Type Care Provider Facility Start: 06-20-2023 End: 06-21-2023 Emergency department patient visit [facility] Start: 11-26-2021 End: 11-26-2021 [facility] Facility:H1 Start: 11-18-2021 End: 11-18-2021 [facility] Facility:H1 Start: 07-22-2017 End: 07-22-2017 Emergency department patient visit [facility] Procedures Date Procedure Procedure Detail Performing Clinician Start: 07-21-2017 Radiologic exam ches t single view NATO BAKER Start: 07-21-2017 INITIATE RT PROTOCOL MAURY BAKER Payers Date Payer Category Payer Unknown [id number] 2017 Unknown 1990 Unknown [id number] [id number] [id number] 1990 Unknown [id number] [id number] [id number] 1990 Unknown [id number] 2.16.84 [id number] 1991 Unknown [id number] 2.16.84 [id number] 1958 Self-pay [id number] Summary Purpose Family History No Family History Records FoundNo Family History Records FoundNo Family History Records Found Advance Directives No Advanced Directives Records FoundNo Advanced Directives Records FoundNo Advanced Directives Records Found Additional Source Comments (unrecognized sect ion and content) No Status Records FoundNo Status Records FoundNo Status Records Found INFORMATION SOURCE (unrecogn ized section and content) DATE CREATED AUTHOR 11/23/2017 [facility] DATE CREATED AUTHOR AUTHOR'S ORGANIZ ATION 11/28/2021 [facility] DATE CREATED AUTHOR AUTHOR'S ORGANIZ ATION 06/23/2023 [facility] FOR RECORDS PERTAINING TO PATIENTS WHO ARE OR HAVE BEEN ENROLLED IN A CHEMICAL DEPENDENCY/SUBSTANCEABUSE PROGRAM, SOME INFORMATION MAY BE OMITTED. This clinical summary was aggregated from multiple sources. Caution should be exercised in using it in the provision of clinical care. This summary normalizes information from multiple sources, and as a consequence, information in this document may materially change the coding, format and clinical context of patient data. In addition, data may be omitted in some cases. CLINICAL DECISIONS SHOULD BE BASED ON THE PRIMARY CLINICAL RECORDS. [facility]. provides no warranty or guarantee of the accuracy or completeness of information in this document.
[2024-06-05 21:06] VITALS: BP 132/90; PULSE 79; TEMP 36.9; O2SAT 97; BMI 41.6
--- NOTE | 2024-06-05 21:23 | XR_ITS ---
The [address] [address] Patient Name: GABRIELA STERN MRN: [id number] date: 1990 Sex: M Assigned Patient Location: ER Current Patient Location: ER Accession/Order Number: [id number] Exam Date: 06/05/2024 21:28 Report Date: 06/05/2024 21:43 At the request of: CHIDI LUU Procedure: XR chest 2V EXAMINATION: XR chest 2V HISTORY: Cough COMPARISON: XR chest 11/28/2022 FINDINGS: LUNGS: No significant pulmonary parenchymal abnormalities. VASCULATURE: No increased pulmonary vasculature. PLEURA: No pneumothorax, effusion, or pleural thickening. CARDIAC: No cardiomegaly or cardiac silhouette abnormality. MEDIASTINUM: No visible mass or adenopathy. BONES: No fracture or visible bone lesion. OTHER: Negative. XR/XR chest 2V IMPRESSION: 1. No acute cardiopulmonary process. Stable chest. Electronically authenticated by: AMBERLY PORTILLO Date: 06/05/2024 21:43
--- NOTE | 2024-06-05 22:40 | ED.URI1 ---
HPI - URI/Sore Throat General Chief Complaint: Upper Respiratory Infection Stated Complaint: BODY ACHES, FATIGUE, COUGH Time Seen by Provider: 06/05/24 22:26 Source: patient Limitations: no limitations History of Present Illness HPI Narrative: This 34-year-old male with a history of tobacco use presents for evaluation of 2 days of generalized bodyaches, fatigue, chills, dry cough with pain in his chest with coughing. He has not had any nausea vomiting or diarrhea. He took ibuprofen earlier in the day. He denies any dizziness or syncope. He states he has not actually had a fever but has had some chills. He denies any abdominal pain. He has had some mild diarrhea. Related Data Home Medications ?Medication ?Instructions ?Recorded ?Confirmed albuterol sulfate 90 mcg/actuation 2 puff inhalation Q4H PRN 07/08/23 07/08/23 aerosol inhaler shortness of breath or wheezing Allergies Allergy/AdvReac Type Severity Reaction Status Date / Time Penicillins Allergy Unknown Rash Verified 06/05/24 21:14 Review of Systems ROS Status of ROS 10 or more systems reviewed and unremarkable except as noted in history and below [facility] Social History Smoking status: Current every day smoker Little interest or pleasure in doing things: not at all Feeling down, depressed, or hopeless: not at all Exam Narrative Exam Narrative: Vital signs and Nursing Notes reviewed: Patient is afebrile with a normal pulse, normal blood pressure, he is not hypoxic with pulse ox of 97% on room air General: Alert, nontoxic, obese male ambulatory in the room, no respiratory distress HEENT: Normocephalic atraumatic, mucous membranes are moist and pink, eyes are clear, normal conjunctiva, vision is grossly intact, posterior pharynx is normal in appearance. Chest: Lungs are clear to auscultation with good air entry, there is no wheezing rhonchi or rales appreciated no accessory muscle use, patient is speaking in complete sentences-no chest wall tenderness to palpation CVS: Regular rate and rhythm S1-S2, no murmurs rubs or gallops, pulses are brisk and equal bilaterally ABD: Soft, nondistended, nontender, no rebound guarding or rigidity, bowel sounds are normal, no pulsatile masses appreciated Extremities: Moving all extremities Skin: Normal in appearance without rash,pallor, petechiae or purpura Neuro: No focal deficits Constitutional Vital Signs, click to edit/add: Last Vital Signs Temp 98.4 F 06/05/24 21:06 Pulse 79 06/05/24 21:06 Resp 16 06/05/24 21:06 BP 132/90 06/05/24 21:06 Pulse Ox 97 06/05/24 21:06 O2 Del Method Room Air 06/05/24 21:06 Course Vital Signs Vital signs: Vital Signs Temperature 98.4 F 06/05/24 21:06 Pulse Rate 79 06/05/24 21:06 Respiratory Rate 16 06/05/24 21:06 Blood Pressure 132/90 06/05/24 21:06 Pulse Oximetry 97 06/05/24 21:06 Oxygen Delivery Method Room Air 06/05/24 21:06 Temperature 98.4 F 06/05/24 21:06 Pulse Rate 79 06/05/24 21:06 Respiratory Rate 16 06/05/24 21:06 Blood Pressure 132/90 06/05/24 21:06 Pulse Oximetry 97 06/05/24 21:06 Oxygen Delivery Method Room Air 06/05/24 21:06 MDM - URI/Sore Throat MDM Narrative Medical decision making narrative: This 34-year-old male presents for evaluation of bodyaches, chills, cough. He has a history of tobacco use. He has not had a documented fever. He denies any nausea or vomiting. He had taken ibuprofen earlier in the day. Signs are stable. His physical exam was benign. His lungs are clear. Posterior pharynx is normal. He does not appear to be ill. He was medicated emergency department with Tylenol and ibuprofen. He is negative for influenza and COVID-19. Two-view chest x-ray was reviewed by myself and does not show any acute infiltrate. I explained to him that his symptoms are likely viral in nature and he may test positive for influenza or COVID in the next 24 hours if he wants to be retested. He will be given a prescription for ibuprofen and a note for work. I encouraged him to take medications and plenty of fluids. Lab Data Labs: Lab Results 06/05/24 Range/Units 21:18 Influenza Type A Ag Negative Influenza Type B Ag Negative SARS-CoV-2 Ag (CV2AG) Negative (NEGATIVE) Discharge Plan Discharge Chief Complaint: Upper Respiratory Infection Clinical Impression: Upper respiratory infection, Flu-like symptoms Patient Disposition: Home, Self-Care Mode of Transportation: Private Vehicle Prescriptions / Home Meds: No Action albuterol sulfate 90 mcg/actuation HFA aerosol inhaler 2 puff INHALATION Q4H PRN (Reason: shortness of breath or wheezing) Print Language: Kuwaiti Instructions: Viral Syndrome (ED) Referrals: Physician,Non-Staff, MD [Primary Care Provider] - 1 week Discharge Date/Time: 06/06/24 00:25
[2024-06-05 22:44] LABS: Influenza Virus A Antigen Negative; Influenza Virus B Antigen Negative; Internal Control Within Normal Limits; SARS-CoV-2 Ag NEGATIVE (NEGATIVE)
[2024-06-05] MEDS: IBUPROFEN 600 MG TABLET PO (23:12)
[2024-06-05] MEDS: ACETAMINOPHEN 325 MG TABLET 650 MG PO (23:12)
== END 2024-06-06 00:25 | disposition home or self-care (01) ==
PROVIDERS: Emergency Provider Emergency Medicine
DX: J06.9 Acute upper respiratory infection, unspecified (principal); F17.200 Nicotine dependence, unspecified, uncomplicated; R05.9 Cough, unspecified; R68.83 Chills (without fever); R52 Pain, unspecified
CPT/HCPCS: 71046; 87804; 87811; 99285

== ENCOUNTER 2024-06-23 11:28 | Emergency (ER) | payer OTHER, SELFPAY ==
[2024-06-23 11:39] VITALS: BP 142/74; PULSE 83; TEMP 36.8; O2SAT 98; BMI 40.2
--- OUTSIDE RECORDS SUMMARY | 2024-06-23 11:40 | XMS_ITS | CCD ---
Author Organization [facility] ion [facility] Care Team Providers Care Butcher Helper Name Role Phone NATO NARANJO Unavailable Unavailabl e [facility] Primary Care Unavailable JEMIMA, DR ESTEVES Admitting Unavailable HAY, DR ESTEVES Attending Unavailable HAY, DR ESTEVES Consulting [facility] Care Unavailable JEMIMA, DR ESTEVES Admitting Unavailable HAY, DR ESTEVES Attending Unavailable HAY, DR ESTEVES Consulting [facility] SERVICES, [facility] Unava ilable ALYSSIA HIGHTOWER Attending Unavailable ALYSSIA HIGHTOWER Attending Unavailable ALYSSIA HIGHTOWER Referring [facility]able Allergies Allergy Classification Reported Allergen(s) Allergy Type Date of Onset Reaction(s) Facility (2 sources) Penicillins; Translations: [PENICILLINS] Drug allergy (disorder) 04-03-2015 [facility] Repository Problems Problem Classification Problem Date [...] 24 ABSOLUTE BASOPHIL 0.0 X10E9/L Normal 0.0-0.[address] [facility] Comment on above: Performed By: #### Sharla RECIO CMP, 01826-3 #### [facility] ([id number]) [address] [place] [address] 81858 ABSOLUTE NEUTROPHIL 11.2 X10E9/L High 1.5-6.6 [facility] Comment on above: Performed By: #### Sharla RECIO CMP, 36773-9 #### [facility] ([id number]) [address] [place] [address] 54425 Basophils/100 WBC (Bld) 0.3 % Normal [facility] Comment on above: Performed By: #### Sharla RECIO CMP, 25939-3 #### [facility] ([id number]) [address] [place] [address] 68006 Eosinophils (Bld) [#/Vol] 0.1 10*3/uL Normal 0.0-0.4 [facility] Comment on above: Performed By: #### Sharla RECIO CMP, 01049-3 #### [facility] ([id number]) [address] [place] [address] 42669 Eosinophils/100 WBC (Bld) 0.7 % Normal [facility] Comment on above: Performed By: #### Sharla RECIO CMP, 31547-1 #### [facility] ([id number]) [address] [place] [address] 93994 Erythrocyte distribution width (RBC) [Ratio] 14.4 % Normal 11.5-15.0 [facility] Comment on above: Performed By: #### C ALMITA CMP, 24827-9 #### [facility] ([id number]) [address] [place] [address] 42909 Hematocrit (Bld) [Volume fraction] 47.0 % Normal 39-49 [facility] Comment on above: Performed By: #### Sharla RECIO CMP, 81733-2 #### [facility] ([id number]) [address] [place] [address] 28607 Hemoglobin (Bld) [Mass/Vol] 15.8 g/dL Normal 13.0-17.0 [facility] Comment on above: Performed By: #### Sharla RECIO CMP, 49505-3 #### [facility] ([id number]) [address] [place] [address] 06085 Lymphocytes (Bld) [#/Vol] 2.4 10*3/uL Normal 1.0-3.5 [facility] Comment on above: Performed By: #### Sharla RECIO CMP, 80519-6 #### [facility] ([id number]) [address] [place] [address] 96675 Lymphocytes/100 WBC (Bld) 16.1 % Normal [facility] Comment on above: Performed By: #### Sharla RECIO CMP, 27320-6 #### [facility] ([id number]) [address] [place] [address] 47122 MCH (RBC) [Entitic mass] 29.8 pg Normal 27-34 [facility] Comment on above: Performed By: #### Sharla RECIO CMP, 18589-8 #### [facility] ([id number]) [address] [place] [address] 08516 MCHC (RBC) [Mass/Vol] 33.7 g/dL Normal 32-36 [facility] Comment on above: Performed By: #### Sharla RECIO CMP, 50245-8 #### [facility] ([id number]) [address] [place] [address] 31757 MCV (RBC) [Entitic vol] 88 fL Normal 80-100 [facility] Comment on above: Performed By: #### Sharla RECIO CMP, 41429-4 #### [facility] ([id number]) [address] [place] [address] 91267 Monocytes (Bld) [#/Vol] 0.9 10*3/uL Normal 0-0.9 [facility] Comment on above: Performed By: #### Sharla RECIO CMP, 27871-3 #### [facility] ([id number]) [address] [place] [address] 71552 Monocytes/100 WBC (Bld) 6.0 % Normal [facility] Comment on above: Performed By: #### Sharla RECIO CMP, 67895-6 #### [facility] ([id number]) [address] [place] [address] 56524 Neutrophils/100 WBC (Bld) 76.9 % Normal [facility] Comment on above: Performed By: #### Sharla RECIO, CMP, 76360-8 #### [facility] ([id number]) [address] [place] [address] 51561 Platelet mean volume (Bld) [Entitic vol] 9.5 fL Normal 7-12 [facility] Comment on above: Performed By: #### Sharla RECIO, CMP, 08212-9 #### [facility] ([id number]) [address] [place] [address] 95541 Platelets (Bld) [#/Vol] 186 10*3/uL Normal 150-450 [facility] Comment on above: Performed By: #### Sharla RECIO, CMP, 71690-0 #### [facility] ([id number]) [address] [place] [address] 11240 RBC COUNT 5.31 X10E12/L Normal 4.10-5.70 [facility] Comment on above: Performed By: #### C BCA, CMP, 09483-9 #### [facility] ([id number]) [address] [place] [address] 77918 WBC (Bld) [#/Vol] 14.6 10*3/uL High 4.0-11.0 [facility] Comment on above: Performed By: #### C BCA, CMP, 48064-0 #### [facility] ([id number]) [address] [place] [address] 74252 COMPREHENSIVE METABOLIC PANE Cosmo 06-20-2023 Albumin [Mass/Vol] 4.3 g/dL Normal 3.2-5.[address] [facility] Comment on above: Performed By: #### C BCA, CMP, 54373-2 #### [facility] ([id number]) [address] [place] [address] 74287 ALP [Catalytic activity/Vol] 81 U/L Normal 39-130 [facility] Comment on above: Performed By: #### C BCA, CMP, 35251-7 #### [facility] ([id number]) [address] [place] [address] 16336 ALT [Catalytic activity/Vol] 39 U/L Normal 0-40 [facility] Comment on above: Performed By: #### C BCA, CMP, 90787-2 #### [facility] ([id number]) [address] [place] [address] 53066 Anion gap [Moles/Vol] 9 mmol/L Normal 5-15 [facility] Comment on above: Performed By: #### C BCA, CMP, 85174-7 #### [facility] ([id number]) [address] [place] [address] 16751 AST [Catalytic activity/Vol] 21 U/L Normal 0-41 [facility] Comment on above: Performed By: #### C MATTIE RECIO, 65140-5 #### [facility] ([id number]) [address] [place] [address] 37135 Bilirubin [Mass/Vol] 1.1 mg/dL Normal 0.3-1.2 [facility] Comment on above: Performed By: #### Sharla RECIO CMP, 90575-5 #### [facility] ([id number]) [address] [place] [address] 27582 Calcium [Mass/Vol] 8.9 mg/dL Normal 8.5-10.[address] [facility] Comment on above: Performed By: #### Sharla RECIO CMP, 23416-6 #### [facility] ([id number]) [address] [place] [address] 63692 Chloride [Moles/Vol] 102 mmol/L Normal 98-109 [facility] Comment on above: Performed By: #### Sharla RECIO CMP, 48228-8 #### [facility] ([id number]) [address] [place] [address] 95827 CO2 [Moles/Vol] 23 mmol/L Normal 22-32 [facility] Comment on above: Performed By: #### Sharla RECIO CMP, 32994-3 #### [facility] ([id number]) [address] [place] [address] 51241 Creatinine [Mass/Vol] 1.01 mg/dL Normal 0.70-1.20 [facility] Comment on above: Result Comment: METH OD TRACEABLE TO IDMS STANDARD Performed By: #### Sharla RECIO CMP, 18517-3 #### [facility] ([id number]) [address] [place] [address] 73471 eGFR (CKD-EPI) NON-RACE DEPENDENT >90 Normal >59 [facility] Comment on above: Result Comment: Reported eGFR is based on the CKD-EPI 2021 equation that does not use a race coefficient. Performed By: #### C BCA, CMP, 81468-2 #### [facility] ([id number]) [address] [place] [address] 79770 Glucose [Mass/Vol] 130 mg/dL High 65-[address] [facility] Comment on above: Performed By: #### C BCA, CMP, 03154-8 #### [facility] ([id number]) [address] [place] [address] 14618 Potassium [Moles/Vol] 3.9 mmol/L Normal 3.5-5.0 [facility] Comment on above: Performed By: #### C BCA, CMP, 89949-6 #### [facility] ([id number]) [address] [place] [address] 57511 Protein [Mass/Vol] 7.5 g/dL Normal 6.0-8.[address] [facility] Comment on above: Performed By: #### C BCA, CMP, 31631-5 #### [facility] ([id number]) [address] [place] [address] 76293 Sodium [Moles/Vol] 134 mmol/L Normal 134-[address] [facility] Comment on above: Performed By: #### C BCA, CMP, 66282-5 #### [facility] ([id number]) [address] [place] [address] 87715 Urea nitrogen [Mass/Vol] 12 mg/dL Normal 5-23 [facility] Comment on above: Performed By: #### C BCA, CMP, 15513-3 #### [facility] ([id number]) [address] [place] [address] 71726 SARS/FLU A+B/RSV by NAAT/Mol ecularon 06-20-2023 SARS/FLU [...] operators who are performing tests using either MEETiiN or Edifilm systems and is limited to laboratories that [...] repeat. Fact Sheet for Healthcare Providers: https://www.fda.gov/me liam/159267/download Fact Sheet for Patients: https://www.fda.gov/me liam/104032/download Normal [facility] Comment on above: Performed By: #### C OVFLR #### [facility] ([id number]) [address] [place] [address], [place] [address] TROPONIN Ion 06-20-2023 Troponin I.cardiac [Mass/Vol] ng/mL Normal 0.00-0.04 [facility] Comment on above: Performed By: #### C BCA, [facility], 97810-2 #### [facility] ([id number]) [address] [place] [address], [place] [address] XR CHEST 1 VWon 06-20-2023 XR CHEST [...] Higgins MD on 06/20/2023 6:26 AM Normal [facility] CBC AUTO DIFFon 11-26-2021 BASO # 0.0 103/ul Normal 0.0-0.1 [facility] Comment on above: Performed By: #### C BC #### [facility] [address] [place] [address] Dr. Taylor Whalen Basophils/100 WBC (Bld) 0.3 % Normal 0.2-2.0 [facility] Comment on above: Performed By: #### C BC #### [facility] [address] [place] [address] Dr. Taylor Whalen EO # 0.2 103/ul Normal 0.0-0.7 [facility] Comment on above: Performed By: #### C BC #### [facility] [address] [place] [address] Dr. Taylor Whalen Eosinophils/100 WBC (Bld) 1.8 % Normal 0.9-7.0 [facility] Comment on above: Performed By: #### C BC #### [facility] [address] [place] [address] Dr. Taylor Whalen Erythrocyte distribution width (RBC) [Ratio] 13.2 % Normal 11.0-15.0 [facility] Comment on above: Performed By: #### C BC #### [facility] [address] [place] [address] Dr. Taylor Whalen Hematocrit (Bld) [Volume fraction] 47.0 % Normal 42.0-54.0 [facility] Comment on above: Performed By: #### C BC #### [facility] [address] [place] [address] Dr. Taylor Whalen Hemoglobin (Bld) [Mass/Vol] 15.6 g/dL Normal 14.0-18.0 [facility] Comment on above: Performed By: #### C BC #### [facility] [address] [place] [address] Dr. Taylor Whalen IG # 0.10 10e3/ul Critically high 0.00-0.03 [facility] Comment on above: Performed By: #### C BC #### [facility] [address] [place] [address] Dr. Taylor Whalen IG % 0.9 % Critically high 0.0-0.5 [place] Comment on above: Performed By: #### C BC #### [facility] [address] [place] [address] Dr. Taylor Whalen LYMPH # 1.1 103/ul Critically low 1.2-3.8 [facility] Comment on above: Performed By: #### C BC #### [facility] [address] [place] [address] Dr. Taylor Whalen Lymphocytes/100 WBC (Bld) 10.0 % Critically low 20.5-60.0 [facility] Comment on above: Performed By: #### C BC #### [facility] [address] [place] [address] Dr. Taylor Whalen MANUAL DIFF REQ NO Normal [place] Comment on above: Performed By: #### C BC #### [facility] [address] [place] [address] Dr. Taylor Whalen MCH (RBC) [Entitic mass] 30.1 pg Normal 25.9-34.0 [facility] Comment on above: Performed By: #### C BC #### [facility] [address] [place] [address] Dr. Taylor Whalen MCHC (RBC) [Mass/Vol] 33.2 g/dL Normal 29.9-35.2 [facility] Comment on above: Performed By: #### C BC #### [facility] [address] [place] [address] Dr. Taylor Whalen MCV (RBC) [Entitic vol] 90.7 fL Normal 80.0-94.0 [facility] Comment on above: Performed By: #### C BC #### [facility] [address] [place] [address] Dr. Taylor Whalen MONO # 0.8 103/ul Normal 0.3-0.8 [facility] Comment on above: Performed By: #### C BC #### [facility] [address] [place] [address] Dr. Taylor Whalen Monocytes/100 WBC (Bld) 7.5 % Normal 1.7-12.0 [facility] Comment on above: Performed By: #### C BC #### [facility] [address] [place] [address] Dr. Taylor Whalen NEUT # 8.9 103/ul Critically high 1.4-6.5 [place] Comment on above: Performed By: #### C BC #### [facility] [address] [place] [address] Dr. Taylor Whalen Neutrophils/100 WBC (Bld) 79.5 % Critically high 43.0-75.0 [facility] Comment on above: Performed By: #### C BC #### [facility] [address] [place] [address] Dr. Taylor Whalen Platelet mean volume (Bld) [Entitic vol] 10.9 fL Normal 9.5-13.5 [facility] Comment on above: Performed By: #### C BC #### [facility] [address] [place] [address] Dr. Taylor Whalen PLT 192 103/ul Normal 150-450 [facility] Comment on above: Performed By: #### C BC #### [facility] [address] [address] [address] Taylor Whalen RBC 5.18 106/ul Normal 4.70-6.10 [facility] Comment on above: Performed By: #### C BC #### [facility] [address] [address] [address] Taylor Whalen WBC 11.2 103/ul Critically high 4.0-11.0 [facility] Comment on above: Performed By: #### C BC #### [facility] [address] [address] [address] Taylor Whalen CRPon 11-26-2021 CRP 2.0 mg/dL Critically high <=1.0 [place] Comment on above: Performed By: #### C RP, CMP #### [facility] [address] [address] [address] Taylor Whalen Covid-19 PCR (CVDTBH)on 11-03 SARS-CoV-2 (COVID-19) RNA KARUNA+probe Ql (Unsp spec) Detected Critically abnormal NOT DETECTED [facility] Comment on above: Result Comment: This test is not yet approved or cleared by the [place] FDA. When there are no FDA-approved or cleared tests available, and other criteria are met, FDA can make tests available under an emergency access mechanism called an Emergency Use Authorization (EUA). The EUA for this test is supported by the [place] of Health and Human Service's declaration that [...] used). Performed By: #### C VDTBH #### [facility] [address] [place] [address] Dr. Taylor Whalen LACTATE/LACTIC ACIDon 2021 Lactate [Moles/Vol] 1.7 mmol/L Normal 0.4-1.9 [facility] Comment on above: Performed By: #### L ACT #### [facility] [address] [place] [address] Dr. Taylor Whalen PROF 14(COMP METB)on 022 Albumin [Mass/Vol] 3.9 g/dL Normal 3.4-5.0 [facility] Comment on above: Performed By: #### C RP, CMP #### [facility] [address] [place] [address] Dr. Taylor Whalen Albumin/Globulin [Mass ratio] 1.2 {ratio} Normal [facility] Comment on above: Performed By: #### C RP, CMP #### [facility] [address] [place] [address] Dr. Taylor Whalen ALP [Catalytic activity/Vol] 92 U/L Normal 46-116 [facility] Comment on above: Performed By: #### C RP, CMP #### [facility] [address] [place] [address] Dr. Taylor Whalen ALT [Catalytic activity/Vol] 41 U/L Normal 16-63 [facility] Comment on above: Performed By: #### C RP, CMP #### [facility] [address] [place] [address] Dr. Taylor Whalen Anion gap [Moles/Vol] 14.3 mmol/L Normal [facility] Comment on above: Performed By: #### C RP, CMP #### [facility] [address] [place] [address] Dr. Taylor Whalen AST [Catalytic activity/Vol] 14 U/L Critically low 15-37 [facility] Comment on above: Performed By: #### C RP, CMP #### [facility] [address] [place] [address] Dr. Taylor Whalen Bilirubin [Mass/Vol] 0.4 mg/dL Normal 0.2-1.0 [facility] Comment on above: Performed By: #### C RP, CMP #### [facility] [address] [place] [address] Dr. Taylor Whalen Calcium [Mass/Vol] 9.0 mg/dL Normal 8.5-10.1 [facility] Comment on above: Performed By: #### C RP, CMP #### [facility] [address] [place] [address] Dr. Taylor Whalen Chloride [Moles/Vol] 102 mmol/L Normal 98-107 [facility] Comment on above: Performed By: #### C RP, CMP #### [facility] [address] [place] [address] Dr. Taylor Whalen CO2 [Moles/Vol] 24.4 mmol/L Normal 21.0-32.0 [facility] Comment on above: Performed By: #### C RP, CMP #### [facility] [address] [place] [address] Dr. Taylor Whalen Creatinine [Mass/Vol] 1.23 mg/dL Normal 0.70-1.30 [facility] Comment on above: Performed By: #### C RP, CMP #### [facility] [address] [place] [address] Dr. Taylor Whalen EGFR-AF QATARI >60 Normal >=60 [facility] Comment on above: Performed By: #### C RP, CMP #### [facility] [address] [place] [address] Dr. Taylor Whalen EGFR-NON AF QATARI >60 Normal >=60 [facility] Comment on above: Performed By: #### C RP, CMP #### [facility] [address] [place] [address] Dr. Taylor Whalen Globulin (S) [Mass/Vol] 3.3 g/dL Normal [facility] Comment on above: Performed By: #### C RP, CMP #### [facility] [address] [place] [address] Dr. Taylor Whalen Glucose [Mass/Vol] 111 mg/dL Critically high 74-106 [facility] Comment on above: Performed By: #### C RP, CMP #### [facility] [address] [place] [address] Dr. Taylor Whalen Potassium [Moles/Vol] 3.7 mmol/L Normal 3.5-5.1 [facility] Comment on above: Performed By: #### C RP, CMP #### [facility] [address] [place] [address] Dr. Taylor Whalen Protein [Mass/Vol] 7.2 g/dL Normal 6.4-8.2 [facility] Comment on above: Performed By: #### C RP, CMP #### [facility] [address] [place] [address] Dr. Taylor Whalen Sodium [Moles/Vol] 137 mmol/L Normal 136-145 [facility] Comment on above: Performed By: #### C RP, CMP #### [facility] [address] [place] [address] Dr. Taylor Whalen Urea nitrogen [Mass/Vol] 10.0 mg/dL Normal 7.0-18.0 [facility] Comment on above: Performed By: #### C RP, CMP #### [facility] [address] [place] [address] Dr. Taylor Whalen Urea nitrogen/Creatinin e [Mass ratio] 8.1 mg/mg Normal [facility] Comment on above: Performed By: #### C RP, CMP #### [facility] [address] [place] [address] Dr. Taylor Whalen SED RATE [facility] 2021 SED RATE 17 mm/hr Critically high <=15 [place] Comment on above: Performed By: #### S EDR #### [facility] [address] [place] [address] Dr. Taylor Whalen GROUP A STREP CULTUREon 11-02 S. pyogenes Ag Ql (Unsp spec) Culture Observations: NEGATIVE FOR GROUP A STREPTOCOCCUS. Normal [facility] Comment on above: Performed By: #### S SCRN GRASTCX #### [facility] [address] [place] [address] Dr. Taylor Whalen STREPT SCREENon 11-18-2021 STREP SCREEN A Negative Normal NEGATIVE [facility] Comment on above: Performed By: #### S SCRN, GRASTCX #### [facility] [address] [address] [address] Taylor Whalen XR CHEST PORTABLEon 07-22-19 [...] by:GABRIELLE Arzateigned by:Vin Bautista MD07/21/17inal result Normal [facility] Encounters Encounter Date Encounter Type Care Provider Facility Start: 06-20-2023 End: 06-21-2023 Emergency department patient visit [facility] Start: 11-26-2021 End: 11-26-2021 [facility] Facility:[facility] Start: 11-18-2021 End: 11-18-2021 [facility] Facility:[facility] Start: 07-22-2017 End: 07-22-2017 Emergency department patient visit NATO BAKER [facility] Procedures Date Procedure Procedure Detail Performing Clinician Start: 07-21-2017 Radiologic exam ches t single view NATO BAKER Start: 07-21-2017 INITIATE RT PROTOCOL MAURY BAKER Payers Date Payer Category Payer Unknown [id number] 2017 Unknown 1990 Unknown [id number] 2.16.84 [id number] 1991 Unknown [id number] 2.16.84 [id number] 1991 Unknown [id number] 2.16.84 [id number] 1991 Unknown [id number] 2.16.84 [id number] 1958 Self-pay [id number] Summary Purpose Family History No Family History Records FoundNo Family History Records FoundNo Family History Records Found Advance Directives No Advanced Directives Records FoundNo Advanced Directives Records FoundNo Advanced Directives Records Found Additional Source Comments (unrecognized sect ion and content) No Status Records FoundNo Status Records FoundNo Status Records Found INFORMATION SOURCE (unrecogn ized section and content) DATE CREATED AUTHOR 11/23/2017 [facility] DATE CREATED AUTHOR AUTHOR'S ORGANIZ ATION 11/28/2021 [facility] DATE CREATED AUTHOR AUTHOR'S ORGANIZ ATION 06/23/2023 [facility] FOR RECORDS PERTAINING TO PATIENTS WHO ARE [...] BE BASED ON THE PRIMARY CLINICAL RECORDS. [employer] [facility]. provides no warranty or guarantee of the accuracy or completeness of information in this document.
[2024-06-23] MEDS: NAPROXEN 250 MG TABLET 500 MG PO (12:25)
--- NOTE | 2024-06-23 17:19 | ED_ITS ---
HPI - Skin/Abscess/Foreign Bdy General Chief complaint: Skin/Abscess/Foreign Body Stated complaint: LOCALIZED SWELLING - LEG Time Seen by Provider: 06/23/24 11:52 Source: patient Mode of arrival: walk-in Limitations: no limitations History of Present Illness HPI narrative: The patient is coming today after he noticed swelling in his left thigh medially. That it was just painful he denies any insect bite or any other concern he also denies any itching or fever or chills Related Data Home Medications ?Medication ?Instructions ?Recorded ?Confirmed albuterol sulfate 90 mcg/actuation 2 puff inhalation Q4H PRN 07/08/23 06/23/24 aerosol inhaler shortness of breath or wheezing Previous Rx's ?Medication ?Instructions ?Recorded doxycycline hyclate 100 mg tablet 100 mg PO BID 10 days #20 tabs 06/23/24 naproxen 375 mg tablet 375 mg PO Q12H PRN pain #14 tabs 06/23/24 Allergies Allergy/AdvReac Type Severity Reaction Status Date / Time Penicillins Allergy Unknown Rash Verified 06/23/24 11:38 Review of Systems ROS Status of ROS 10 or more systems reviewed and unremark able except as noted in history and below PFSH PFS Social History Smoking status: Current every day smoker Little interest or pleasure in doing things: not at all Feeling down, depressed, or hopeless: not at all Exam Narrative Exam Narrative: Nurses notes and vital signs reviewed and patient is not hypoxic. Left lower extremity: On the medial aspect of the left lower extremity mostly at the medial aspect of the thigh almost at the area of the medial mid third of the thigh the patient have an area of redness that is measuring almost 3 x 5 cm not indurated only red with entrance wound at the middle that could be insect bite No fluctuation no induration and there is some tenderness on exam no hotness General: Well-appearing and in no apparent distress. No rash. Head: Normocephalic, atraumatic. Neck: Supple, non-tender. Neurological: A&O x4. No cranial nerve dysfunction observed. No truncal ataxia. Moves all extremities. Sensation intact. Psychiatric: Cooperative and interactive. Normal mood and affect. Constitutional Vital Signs, click to edit/add: Last Vital Signs Temp 98.3 F 06/23/24 11:39 Pulse 83 06/23/24 11:39 Resp 20 06/23/24 11:39 BP 142/74 H 06/23/24 11:39 Pulse Ox 98 06/23/24 11:39 O2 Del Method Room Air 06/23/24 11:39 Course Vital Signs Vital signs: Vital Signs Temperature 98.3 F 06/23/24 11:39 Pulse Rate 83 06/23/24 11:39 Respiratory Rate 06/23/24 11:39 Blood Pressure 142/74 H 06/23/24 11:39 Pulse Oximetry 98 06/23/24 11:39 Oxygen Delivery Method Room Air 06/23/24 11:39 Temperature 98.3 F 06/23/24 11:39 Pulse Rate 83 06/23/24 11:39 Respiratory Rate 06/23/24 11:39 Blood Pressure 142/74 H 06/23/24 11:39 Pulse Oximetry 98 06/23/24 11:39 Oxygen Delivery Method Room Air 06/23/24 11:39 MDM - Skin/Abscess/Foreign Bdy MDM Narrative Medical decision making narrative: The patient is coming to us with an area of possible insect bite that got infected and small area of cellulitis He was started on doxycycline as an antibiotic and he will also provided with anti-inflammatory mostly naproxen Patient had the lesion marked he was instructed about the importance of come back in case of any fever or increasing redness or pain The patient is to follow up with primary care physician in next 2-3 days or to return to the emergency department should any of the signs or symptoms worsen or new symptoms develop. The patient agrees with the following Diagnosis and Treatment plan and the patient will be discharged home. Discharge Plan Discharge Chief Complaint: Skin/Abscess/Foreign Body Clinical Impression: Cellulitis, Infected insect bite Patient Disposition: Home, Self-Care Time of Disposition Decision: 12:14 Condition: Good Prescriptions / Home Meds: New doxycycline hyclate 100 mg tablet 100 mg PO BID 10 Days Qty: 20 0RF naproxen 375 mg tablet 375 mg PO Q12H PRN (Reason: pain) Qty: 14 0RF No Action albuterol sulfate 90 mcg/actuation HFA aerosol inhaler 2 puff INHALATION Q4H PRN (Reason: shortness of breath or wheezing) Print Language: Ecuadorean Instructions: Cellulitis (ED) Referrals: Physician,Non-Staff, [Primary Care Provider] - 1 week Discharge Date/Time: 06/23/24 12:32
== END 2024-06-23 12:32 | disposition home or self-care (01) ==
PROVIDERS: Emergency Provider Emergency Medicine
DX: S70.362A Insect bite (nonvenomous), left thigh, initial encounter (principal); L03.116 Cellulitis of left lower limb; W57.XXXA Bitten or stung by nonvenomous insect and other nonvenomous arthropods, initial encounter; F17.200 Nicotine dependence, unspecified, uncomplicated
CPT/HCPCS: 99283

== ENCOUNTER 2025-05-20 06:59 | Emergency (ER) | payer OTHER, SELFPAY ==
--- OUTSIDE RECORDS SUMMARY | 2023-02-26 09:15 | XMS_ITS | Continuity of Care Document ---
Author Organization [facility] Address [address] [place] [address] Phone Care Team Providers Care Novelty Maker Name Role Phone Jevon Headley DMD Unavailable Unavailable Allergies, Adverse Reactions, Alerts Substance Reaction Status Criticality POTASSIUM CLAVULANATE Active No Inf ormation AMOXICILLIN TRIHYDRATE Active No In formation ampicillin Active No Information Penicillins Active No Information Medications Medication Instructions Dosage Effective Dates (start - stop) Status Comments Proair Digihaler 90 mcg/actuation aerosol powder breath act, sensor inhale 2 puff by inhalation route every 4 - 6 hours as needed - Active azithromycin 250 mg tablet take 2 tablet(500 mg) by oral route for 1 day then 1 tablet (250 mg) by oral route once daily for 4 days - No Longer Active Procedures Procedure Date Xkrtylzda-yuydytcipo-hdhn Additional Feb Bitewig-single Film Nutrit Couns For Control Of [place] Dis Feb Limited Oral Eval Advance Directives Directive Yes / No Effective Date File Name No Information Encounters Encounter Description Practice Location Reason(s) For Visit Diagnoses Date Provider Providers Copied on Encounter [facility], [address] [place] [address], [id number], [place] tel:[phone] [facility] [place] (chief complaint) Encounter for screening for dental disorders Kayode Escoto. [address], [place], [id number], [place]. tel:[phone] Family History Family Member Type Diagnosis Age At Onset No Information Payers Payer name Insurance type Covered republican ID Authormoiraa jeremiah(s) No Information Social History Type Description Quantity Date Captured Comments Alcohol Use Details Unknown Caffeine Use Details Unknown Tobacco Use Status Cigarette smoker Smoking Status Current every day smoker 2022 Smoking Tobacco Use Details Cigarette: Age Started: 16 Cigarette: No Details Available [id number] SexMaleSexual OrientationStraight or heterosexualGender [id number] Vital Signs Date / Time: Height Weight BMI Pulse Rate Blood Pressure Temperature Respiratory Rate Body Surface Area Head Circumference Head Circ. Percentile Wt./Og. Percentile BMI percentile Pulse Ox Inhaled Ox 2:08 PM 85 /min 146/91 mm[Hg] 96.20 F Chief Complaint And Reason For Visit From encounter dated '02/26/2023 14:15'. [place] (chief complaint). Description: [place] Reason For Referral Reason For Referral No Information Plan Of Treatment Date Type Action Status Goal PRAPARE ASSESSMENT. Due on S due Goal RLP. Due on due Goal Depression screening. Due on due Goal Tdap Vaccine. Due on 2022 due Goal Tdap. Due on due Goal Influenza vaccine. Due on Se due History Of Present Illness Encounter Date Complaint History Of Prese nt Illness DE [place] Functional Status Date Functional Assessmen t No Information Instructions Date Instruction Additional Infor mation No Information Assessments Type Assessment Date No Information Patient Care Teams Name Effective Dates (start - stop) Status Members No Information
[2025-05-20] VITALS (20 sets, daily range): BP systolic 116–134; BP diastolic 79–85; PULSE 92–108; TEMP 36.7; O2SAT 96–98; BMI 40.2
--- NOTE | 2025-05-20 07:11 | ED_ITS ---
HPI - Chest Pain General Chief Complaint: Shortness of Breath/Dyspnea Stated Complaint: CHEST PAIN, SOB Time Seen by Provider: 05/20/25 08:02 Source: patient Mode of arrival: walk-in Limitations: no limitations History of Present Illness HPI narrative: Cayden Sarah is a 35-year-old otherwise healthy male presenting to the emergency department for chest pain. Chest pain is pressure-like in sensation. It radiates to his right jaw. It is not associated with shortness of breath or diaphoresis. He does have some slight nausea. Patient has not had any recent exertional chest pain or shortness of breath. Patient states that the pain was mild to moderate in severity. Unknown what makes it worse. Nothing makes it better. Patient does not have a history of coronary artery disease, hypertension, dyslipidemia, or diabetes. Patient denies tobacco abuse. Patient states that he did go out drinking last night and last drink at 12:30 AM. He drank Shanita bombs . Patient denies any recent fever or chills. No sick contacts or recent travel. MD complaint: Reports chest pain Related Data Home Medications ?Medication ?Instructions ?Recorded ?Confirmed albuterol sulfate 90 mcg/actuation 2 puff inhalation Q 4H PRN 07/08/23 05/20/25 aerosol inhaler shortness of breath or wheez ing Allergies Allergy/AdvReac Type Severity Reaction Status Date / Time Penicillins Allergy Unknown Rash Verified 05/20/25 07:05 Review of Systems ROS Narrative 10 Systems were reviewed, and unless not ed in the HPI, all other systems are reviewed, unremarkable, or noncontributory. [facility] Social History Smoking status: Current every day smoker Little interest or pleasure in doing things: not at all Feeling down, depressed, or hopeless: not at all Exam Narrative Exam Narrative: Prior to examining the patient, I have washed with hospital approved and provided Antiseptic Hand [place] and have also applied gloves.? Prior to touching the patient, I asked for consent to examine the patient.? General: Alert and oriented, well nourished, mild distress. Eye: PERRL, EOMI, normal conjunctiva. HENT: Normocephalic, normal hearing, moist oral mucosa, no scleral icterus, no sinus tenderness. Neck: Supple, non-tender, no carotid bruits, no JVD, no lymphadenopathy. Lungs: Clear to auscultation and percussion, non-labored respiration. No rhonchi, rales, wheezing Heart: Normal rate, regular rhythm, no murmur, gallop or edema. Abdomen: Soft, non-tender, non-distended, normal bowel sounds, no masses. Musculoskeletal: Normal range of motion and strength, no tenderness or swelling. Skin: Skin is warm, dry and pink, no rashes or lesions. Neurologic: Awake, alert, and oriented X3, CN II-XII intact. Psychiatric: Cooperative, appropriate mood and affect.? Following the conclusion of the examination, I have washed my hands thoroughly after removing examination gloves. Constitutional Vital Signs, click to edit/add: Last Vital Signs Temp 98.0 F 05/20/25 07:06 Pulse 99 H 05/20/25 09:20 Resp 20 05/20/25 09:20 BP 129/85 05/20/25 09:01 Pulse Ox 98 05/20/25 09:20 O2 Del Method Room Air 05/20/25 07:06 Course Course Hospital Course: In summary, the patient is a 35-year-old healthy male presenting to the emergency department for chest pain. We commenced with a chest pain protocol with a unremarkable EKG. We did a CBC, BMP, troponin x 2. All of the lab work appears to be unremarkable. The patient denied any additional symptoms at this time. Reevaluation(s) Reevaluation #1: Patient was reassessed. He is sitting in bed comfortable. He is nontoxic and in no acute distress sitting with his . He was informed that there is no concern at this time for acute coronary syndrome. His heart score is 0. The patient can adequately follow-up with his primary care physician for an outpatient stress test. Time: 09:41 Vital Signs Vital signs: Vital Signs Temperature 98.0 F 05/20/25 07:06 Pulse Rate 102 H 05/20/25 07:06 Respiratory Rate 18 05/20/25 07:06 Blood Pressure 134/84 05/20/25 07:06 Pulse Oximetry 97 05/20/25 07:06 Oxygen Delivery Method Room Air 05/20/25 07:06 Temperature 98.0 F 05/20/25 07:06 Pulse Rate 99 H 05/20/25 09:20 Respiratory Rate 20 05/20/25 09:20 Blood Pressure 129/85 05/20/25 09:01 Pulse Oximetry 98 05/20/25 09:20 Oxygen Delivery Method Room Air 05/20/25 07:06 MDM - Chest Pain MDM Narrative Medical decision making narrative: In summary, the patient is a 35-year-old male presenting to the emergency department with for chest pressure. Chest pressure began at 6 AM. Patient stated it was with no specific activity. No recent exertional chest pain or shortness of breath. Patient's heart score is 0. No indication for hospital admission as this can be worked up as an outpatient. Overall, I think the patient actually may be slightly dehydrated and slightly anxious from having drank last night. Although his alcohol level is negligible he did have caffeinated red bull with these beverages which can also lead to tachycardia which the patient did have upon arrival. Differential Diagnosis Differential diagnosis: Likely pneumothorax, stable angina, unstable angina pectoris, atypical chest pain, st elevation myocardial infarction, chest pain, biliary colic and other (Alcohol intoxication, dehydration) Medical Records Data Attestation: I reviewed the patient's medical records. Lab Data Attestation: I reviewed the patient's lab results. Lab results narrative: CBC reveals no evidence of anemia or leukocytosis. Labs: Lab Results 05/20/25 05/20/25 Range/Units 07:46 09:10 WBC 9.9 (4.0-11.0) 10^3/uL RBC 5.55 (4.70-6.10) 10^6/uL Hgb 16.7 (14.0-18.0) g/dL Hct 47.9 (42.0-54.0) % MCV 86.3 (80.0-94.0) fL MCH 30.1 (25.9-34.0) pg MCHC 34.9 (29.9-35.2) g/dL RDW 12.5 (11.0-15.0) % Plt Count 190 (150-450) 10^3/uL MPV 10.7 (9.5-13.5) fL Neut % (Auto) 54.5 (43.0-75.0) % Lymph % (Auto) 37.0 (20.5-60.0) % Hickman % (Auto) 5.5 (1.7-12.0) % Eos % (Auto) 1.7 (0.9-7.0) % Baso % (Auto) 0.4 (0.2-2.0) % Neut # (Auto) 5.4 (1.4-6.5) 10^3/uL Lymph # (Auto) 3.6 (1.2-3.8) 10^3/uL Hickman # (Auto) 0.5 (0.3-0.8) 10^3/uL Eos # (Auto) 0.2 (0.0-0.7) 10^3/uL Baso # (Auto) 0.0 (0.0-0.1) 10^3/uL Abs Immat Gran (auto) 0.09 H (0.00-0.03) 10^3/uL Imm/Tot Granulo (auto) 0.9 H (0.0-0.5) % Sodium 136 (136-145) mmol/L Potassium 4.1 (3.5-5.1) mmol/L Chloride 99 (98-107) mmol/L Carbon Dioxide 22.3 (21.0-32.0) mmol/L Anion Gap 18.8 BUN 7.0 (7.0-18.0) mg/dL Creatinine 0.84 (0.70-1.30) mg/dL Est GFR ( Amer) >60 (>=60 mL/min/1.73m^2) Est GFR (Non-Af Amer) >60 (>=60 mL/min/1.73m^2) BUN/Creatinine Ratio 8.3 Glucose 268 H (74-106) mg/dL Calcium 8.6 (8.5-10.1) mg/dL Troponin I High Sens 6.6 5.8 (4.0-76.1) pg/mL Ethanol Quant 6 mg/dL ECG Data Attestation: I personally reviewed and interpreted this ECG as follows: (Atrial fibrillation with rapid ventricular response. Heart rates 152 bpm. T wave depression in the inferior lateral leads.) ECG interpretation date: 05/20/25 Heart Score History: Slightly/Non-Suspicious ECG: Normal Age: <45 years Risk Factors: No Risk Factors Troponin: <Normal Limit Total Heart Score Recommendations & Risks:: 0 Discharge Plan Discharge Chief Complaint: Shortness of Breath/Dyspnea Clinical Impression: Chest pain Patient Disposition: Home, Self-Care Time of Disposition Decision: 09:44 Mode of Transportation: Private Vehicle Prescriptions / Home Meds: No Action albuterol sulfate 90 mcg/actuation HFA aerosol inhaler 2 puff INHALATION Q4H PRN (Reason: shortness of breath or wheezing) Print Language: Belarusian Instructions: Noncardiac Chest Pain (ED) Additional Instructions: Thank you very much for trusting me with your care. I am very honored that you came in. If your symptoms worsen or change then you should return to the emergency department as soon as possible for further evaluation and treatment. Otherwise please follow-up with your primary care physician for further evaluation and treatment. Referrals: Physician,Non-Staff, MD [Primary Care Provider] - 1 week
--- OUTSIDE RECORDS SUMMARY | 2025-05-20 07:25 | XMS_ITS | Clinical Summary ---
Author Organization [facility] Address [address] [place] [address] Care Team Providers Care Ip Technology Transactions Attorney Name Role Phone Unallocated, [facility] Provider Primary Care Provi ciera Allergies Active AllergyReactionsCriticalityNoted NfjhSmxdxmmyPydkalzcbwpQzuqVtp98/25/2017 Medications MedicationSigDispense QuantityRefillsLast FilledStart DateEnd DateStatus albuterol (2.5 MG/3ML) 0.083% nebulizer solution Inhale 2.5 mg every 6 (six) hours if needed.05/01/2022ctive Family History RelationNameStatusCommentsDaughter 1AliveDaughter 2AliveFatherAliveMotherAlive Social History Tobacco UseTypesPacks/DayYears UsedDateSmoking Tobacco: Every DayCigarettes Smokeless Tobacco: Never Tobacco Cessation:Ready to Q uit: Not Asked; Counseling Given: Not Answered Alcohol UseStandard Drinks/WeekCommentsYes0 (1 standard drink = 0.6 oz pure alcohol)Sex and Gender InformationValueDate RecordedSex Assigned at BirthNot on fileLegal WxvWcex4308/16/2022 7:59 PM EDTGender IdentityNot on fileSexual OrientationNot on file Last Filed Vital Signs Vital SignReadingTime TakenCommentsBlood Ahkaoxis651/8811 12:26 PM EST Fyack28328/10/2023 12:26 PM FKTRwlfyrpzqzu97.1 ??C (98.8 ??F)04/13/2023 12:26 PM ESTRespiratory Rate--Oxygen Ctofdwxuzo10%04/13/2023 12:26 PM ESTInhaled Oxygen Concentration--Gfrrlb136 kg (294 lb 4.8 oz)04/13/2023 12:26 PM ESTHeight--Body Mass Index-- Plan of Treatment Not on file Care Teams Team MemberRelationshipSpecialtyStart DateEnd Date Unallocated, [facility] Sal, [address] [place] [address] PCP - Qtkirbo52/10/23
--- OUTSIDE RECORDS SUMMARY | 2025-05-20 07:25 | XMS_ITS | Clinical Summary ---
Author Organization Entrec tem Address [id number] [place] [address] Care Team Providers Care Developmental Psychologist Name Role Phone Services, [facility] Primary Care Provider Allergies Active AllergyReactionsCriticalityNoted QgieJmjhhnywOczyblvtrxdJjwuAma12/25/2017 Medications MedicationSigDispense QuantityRefillsLast FilledStart DateEnd DateStatus ibuprofen (ADVIL,MOTRIN) 800 mg tablet Take 1 tablet (800 mg total) by mouth 3 (three) times a day. 21 tablet 01/18/2021ctive Additional Information Patient not taking.Reported on 09/04/2024 albuterol (PROVENTIL,VENTOLIN) 2.5 mg /3 mL (0.083 %) nebulizer solution Indications:Influenza AInhale 3 mL (2.5 mg total) by nebulization every 6 (six) hours as needed for wheezing. 75 mL 05/01/2022ctive Additional Information Patient not taking.Reported on 09/04/2024 benzonatate (TESSALON PERLES) 100 mg capsule Take 1 capsule (100 mg total) by mouth every 8 (eight) hours. 21 capsule 06/20/2023ctive Additional Information Patient not taking.Reported on 09/04/2024 ibuprofen (MOTRIN) 800 mg tablet Take 1 tablet (800 mg total) by mouth 3 (three) times a day. 21 tablet 06/20/2023ctive Additional Information Patient not taking.Reported on 09/04/2024 methylPREDNISolone (MEDROL, KOKI,) 4 mg tablet follow package directions 21 tablet 06/20/2023ctive Additional Information Patient not taking.Reported on 09/04/2024 albuterol (PROVENTIL HFA;VENTOLIN HFA) 90 mcg/actuation inhaler Indications:Acute viral syndromeInhale 2 puffs every 4 (four) hours as needed for wheezing. 18 g 4Active Additional Information Patient not taking.Reported on 09/04/2024 Active Problems ProblemNoted DateDiagnosed DateS/P myhsomqdqlryx51/05/8391Wigqzzfscgj27/03/2020 Family History Medical HistoryRelationNameCommentsAsthmaBrotherHypertensionFatherDiabetes Maternal GrandfatherHypertensionMaternal GrandfatherDiabetesMaternal Grandmother HypertensionMaternal GrandmotherDiabetesPaternal GrandfatherHypertensionPaternal GrandfatherDiabetesPaternal GrandmotherHypertensionPaternal GrandmotherRelation NameStatusCommentsBrotherFatherMaternal GrandfatherMaternal GrandmotherPaternal GrandfatherPaternal Grandmother Social History Tobacco UseTypesPacks/DayYears UsedDateSmoking Tobacco: Every DayCigarettes Smokeless Tobacco: NeverAlcohol UseStandard Drinks/WeekCommentsYes4 (1 standard drink = 0.6 oz pure alcohol)twice a weekChildcareAnswerDate RecordedChildcare Mwvjeff2911/11/2018EmploymentAnswerDate BqoqytcbLwnuhmvijhRuwbcex63/10/2019Hunger ScreeningAnswerDate RecordedWithin the past 12 months we worried whether our food would run out before we got money to buy more.Never True09/04/2024Within the past 12 months the food we bought just didn't last and we didn't have money to get more.Never True09/04/2024Purpose - LifeAnswerDate RecordedPurpose and direction in ucsdMyxysnc26/11/2021ex and Gender InformationValueDate Recorded Sex Assigned at BirthNot on fileLegal RolRyrs1701/07/2015 11:44 AM EDTGender IdentityNot on fileSexual OrientationNot on file Last Filed Vital Signs Vital SignReadingTime TakenCommentsBlood Mpmvqxqo361/9909/04/2024 11:48 PM EDT Vxulu7322/03/2025 11:21 PM CBLOykmoyrssui39.7 ??C (98.1 ??F)09/04/2024 11:21 PM EDTRespiratory Uhdh469009/04/2024 11:21 PM EDTOxygen Snnsgccvfn99%09/04/2024 11:21 PM EDTInhaled Oxygen Concentration--Htpkes772.5 kg (270 lb)09/04/2024 11:21 PM IPZXfngdk880.8 cm (5' 10 )09/04/2024 11:21 PM EDTBody Mass Index38.7409/04/2024 11:21 PM EDT Plan of Treatment Health MaintenanceDue DateLast DoneCommentsTobacco Kelhjvumkf1991 Depression Vzjnewncl82/01/2003Adult BMI Follow Up Plan2009DTaP,Tdap and Td Vaccines (1 - Tdap)2010Influenza Wcuxqmu8002/02/2025dult BMI Screening Tobacco Jcjtqvcxa26 Goals GoalPatient Goal TypeAssociated ProblemsRecent ProgressPatient-Stated?Author <enter goal here> Carrie Manuel LSW Note: Evaluation of progress towards goal: home at [place] [employer] Not on file Insurance Advance Directives * Full Code (Latest Code Status on File) Date ActivatedDate InactivatedComments07/08/2019 8:38 AM07/08/2019 5:02 PM Care Teams Team MemberRelationshipSpecialtyStart DateEnd Date [facility], [facility] [address] [place] PCP - GeneralFamily Medicine09/04/24
--- OUTSIDE RECORDS SUMMARY | 2025-05-20 07:25 | XMS_ITS | Clinical Summary ---
Author Organization [facility] Address [address], [address] [place] [address] Care Team Providers Care Rug Cleaner Helper Name Role Phone Unavailable Primary Care Provider Unavailabl e Allergies Active AllergyReactionsCriticalityNoted HpjrPfkbhopjTldqtmbtsoe12/25/2017 Medications MedicationSigDispense QuantityRefillsLast FilledStart DateEnd DateStatus albuterol sulfate HFA 108 (90 Base) MCG/ACT inhaler Inhale 2 puffs into the lungs every 6 hours as needed for WheezingActive albuterol (PROVENTIL) (2.5 MG/3ML) 0.083% nebulizer solution Take 3 mLs by nebulization every 6 hours as needed for WheezingActive ibuprofen (ADVIL;MOTRIN) 600 MG tablet Take 1 tablet by mouth 3 times daily as needed for Pain 30 tablet 5Active Social History Tobacco UseTypesPacks/DayYears UsedDateSmoking Tobacco: Every DayCigarettes Smokeless Tobacco: Never Tobacco Cessation:Ready to Q uit: Not Asked; Counseling Given: Not Answered Alcohol UseStandard Drinks/WeekCommentsNot Currently0 (1 standard drink = 0.6 oz pure alcohol)sociallyAUDIT-CAnswerDate RecordedQ1: How often do you have a drink containing alcohol?Never02/03/2025Q2: How many drinks containing alcohol do you have on a typical day when you are drinking?Patient does not drink02/03/2025Q3: How often do you have six or more drinks on one occasion?Never02/03/2025Sex and Gender InformationValueDate RecordedSex Assigned at BirthNot on fileLegal Sex Male07/15/2012 9:21 PM ESTGender IdentityNot on fileSexual OrientationNot on file Last Filed Vital Signs Vital SignReadingTime TakenCommentsBlood Oazvkenf905/8602/03/2025 9:21 AM EDT Ieega689902/03/2025 9:21 AM PPJZaphrxjfzbp54.1 ??C (98.8 ??F)02/03/2025 9:21 AM EDTRespiratory Cikg776702/03/2025 9:21 AM EDTOxygen Qzwhqkhtae34%02/03/2025 9:21 AM EDTInhaled Oxygen Concentration--Wvgadi646.8 kg (257 lb 9.6 oz)07/21/2017 10:36 PM VSUBtvgbd445.3 cm (5' 9 )07/21/2017 10:36 PM ESTBody Mass Index38.04 07/21/2017 10:36 PM EST Plan of Treatment Health MaintenanceDue DateLast DoneCommentsDepression Dwxoac2902/02/2003Varicella vaccine (1 of 2 - 13+ 2-dose series)02/03/2004HIV grnhkq9002/02/2006Hepatitis C rrjlhl1502/02/2009DTaP/Tdap/Td vaccine (1 - Tdap)2010Hepatitis B vaccine (1 of 3 - 19+ 3-dose series)2010Pneumococcal 0-49 years Vaccine (1 of 2 - PCV)2010Flu vaccine (#1)5COVID-19 Vaccine (1 - season) 2025HPV vaccine (No Doses Required)CompletedHepatitis A vaccineAged OutNo longer eligible based on patient's age to complete this topicHib vaccineAged Out No longer eligible based on patient's age to complete this topicMeningococcal (ACWY) vaccineAged OutNo longer eligible based on patient's age to complete this topicMeningococcal B vaccineAged OutNo longer eligible based on patient's age to complete this topicPolio vaccineAged OutNo longer eligible based on patient's age to complete this topic Insurance [address] [place] [address]
--- NOTE | 2025-05-20 07:30 | XR_ITS ---
[place] [id number] Patient Name: GABRIELA STERN MRN: [id number] date: 1990 Sex: M Assigned Patient Location: ER Current Patient Location: ED.MAIN Accession/Order Number: [id number] Exam Date: 05/20/2025 07:35 Report Date: 05/20/2025 09:24 At the request of: REMBERTO VARNER DO Procedure: XR chest 1V PORTABLE AP ERECT CHEST 0719 hours CLINICAL HISTORY: Chest pain COMPARISON: 06/05/2024 There is continued slight elevation of right hemidiaphragm. The heart is top normal in size. There is no vascular congestion. No consolidation is seen. There is no effusion or pneumothorax. The osseous structures are intact. XR/XR chest 1V IMPRESSION: NO ACUTE FINDINGS Impression dictated by: Gina Ghotra M.D. 05/20/2025 9:24 AM [facility]ation [facility] Electronically authenticated by: [id number] Y Date: 05/20/2025 09:24
--- NOTE | 2025-05-20 07:30 | ECG_ITS ---
[facility] Test Date: 2025-05-20 Pat Name: GABRIELA STERN Department: Room: - Gender: Male Checking Clerk: : 1990 Requested By: Order Number: [id number] Reading MD: MILLY VILLAFANA M.D. Measurements Intervals [place] Rate: 94 P: 49 LA: 158 QRS: 25 QRSD: 94 T: 21 QT: 344 QTc: 396 Interpretive Statements 1100 Sinus rhythm 9110 normal ECG Compared to ECG 07/08/2023 10:50:08 Sinus tachycardia no longer present Electronically Signed On 05-20-2025 20:54:24 EST by MILLY VILLAFANA M.D.
[2025-05-20] MEDS: ASPIRIN 81 MG TAB.CHEW 162 MG PO (07:53)
[2025-05-20 07:57] LABS: Hematocrit 47.9 % (42.0-54.0); Hemoglobin 16.7 g/dL (14.0-18.0); Immature Granulocytes Abs Auto 0.09 10^3/uL (0.00-0.03); Immature Granulocytes Pct Auto 0.9 % (0.0-0.5); Lymphocytes Absolute Auto 3.6 10^3/uL (1.2-3.8); Mean Corpuscular HGB Conc 34.9 g/dL (29.9-35.2); Mean Corpuscular Hemoglobin 30.1 pg (25.9-34.0); Mean Corpuscular Volume 86.3 fL (80.0-94.0); Platelet Count 190 10^3/uL (150-450); Red Blood Count 5.55 10^6/uL (4.70-6.10); White Blood Count 9.9 10^3/uL (4.0-11.0)
[2025-05-20 08:41] LABS: Anion Gap 18.8; Blood Urea Nitrogen 7.0 mg/dL (7.0-18.0); Calcium 8.6 mg/dL (8.5-10.1); Carbon Dioxide 22.3 mmol/L (21.0-32.0); Chloride 99 mmol/L (98-107); Estimated GFR (African America >60 (>=60 mL/min/1.73m^2); Estimated GFR (Non-African Ame >60 (>=60 mL/min/1.73m^2); Glucose 268 mg/dL (74-106); Potassium 4.1 mmol/L (3.5-5.1); Sodium 136 mmol/L (136-145)
== END 2025-05-20 09:59 | disposition home or self-care (01) ==
PROVIDERS: Emergency Provider Emergency Medicine
DX: R07.9 Chest pain, unspecified (principal)
CPT/HCPCS: 36415; 71045; 80048; 80307; 80320; 84484; 85025; 93005; 99284